=== PATIENT | female | born 1940 | race Caucasian/White ===

== ENCOUNTER → 2016-10-16 | Outpatient (CLI) | payer OTHER ==
[~2016-10-16] MED LIST: AMLO10CA PO; GLC/500 PO; HYDR25TA5 PO; MULTTAB58 PO; ONDA4TAB10 SL; ONDA4TAB7 SL; POTA10CA28 PO
--- NOTE | 2016-10-16 16:02 | MAMMOGRAPHY REPORT ---
BILATERAL DIGITAL SCREENING MAMMOGRAM WITH CAD: 10/16/2016 CLINICAL HISTORY: Routine screening. Patient has no complaints. TECHNIQUE: Current study was also evaluated with a Computer Aided Detection (CAD) system. Bilatera l CC and MLO views were obtained. COMPARISON: Comparison is made to exams dated: 10/14/2015 mammogram, 10/09/2013 mammogram, 10/10/2014 aracely mogram, 10/06/2012 mammogram, 10/01/2011 mammogram, and 10/09/2010 mammogram - [facility]. BREAST COMPOSITION: The tissue of both breasts is almost entirely fatty. FINDINGS: No suspicious masses, calcifications, or areas of architectural distortion are noted in e ither breast. There has been no significant interval change compared to prior exams. Small mass in the left superior posterior breast on the MLO view is stable compared to the MLO view from the 2010 exam and is consistent with a benign lymph node. IMPRESSION: ACR BI-RADS CATEGORY 2: BENIGN There is no mammographic evidence of malignancy. A 1 year screening mammogram is recommended. The p atient will receive written notification of the results. Approximately 10% of breast cancers are not detected with mammography. A negative mammographic repor t should not delay biopsy if a clinically suggestive mass is present. Jossy Escobar M.D. ah/:10/16/2016 14:40:38 Manager Documentation: Cinthia SUTTON(Arnie)(M), [facility] letter sent: Normal 1/2 BI-RADS Code: ACR BI-RADS Category 2: Benign
== END | disposition home or self-care (01) ==
LOC: C.MAMM 08:45
PROVIDERS: ATTEND Family Medicine
DX: Z12.31 Encounter for screening mammogram for malignant neoplasm of breast (principal)

== ENCOUNTER 2017-07-02 09:50 | Emergency (ER) | payer OTHER ==
[~2017-07-02] VITALS: Ht 168.9 cm; Wt 80.6 kg
[~2017-07-02 09:50] MED LIST changes: -ONDA4TAB10 SL; -POTA10CA28 PO
[2017-07-02 09:53] VITALS: TEMP 36.4; Ht 168.9 cm; Wt 80.6 kg
[2017-07-02] MEDS ORDERED: IBUPROFEN 200 MG TAB PO STA (11:17)
[2017-07-02] MEDS ORDERED: OXYCODONE/ACETAMINOPHEN 5-325 TAB PO STA (11:17)
[2017-07-02] MEDS ORDERED: LOTE1GEL OP (12:13)
[2017-07-02] MEDS ORDERED: MTRCR45 TOP (12:13)
[2017-07-02] MEDS ORDERED: LIFI5DRO OPB (12:13)
[2017-07-02] MEDS ORDERED: PRLSR20 PO (12:13)
[2017-07-02] MEDS ORDERED: FISH1CAP3 PO (12:13)
[2017-07-02] MEDS ORDERED: PROB1TAB16 PO (12:13)
[2017-07-02] MEDS ORDERED: CALC600T9 PO (12:13)
--- NOTE | 2017-07-02 12:15 | DIAGNOSTIC IMAGING REPORT ---
L-SPINE MIN 4 VIEWS ROUTINE HISTORY: Pain mid to low back pain ? compression fx COMPARISON: 03/16/2015 FINDINGS: Mild lumbar scoliosis. Progressive degenerative disc change L2-L3 and to lesser extent L3-L4. Slight wedge deformity superior endplate T12. This is not present on the prior study although has some radiographic features indicate a nonacute or indeterminate age. Minimal grade 1 anterolisthesis L4 on L5 on a degenerative basis moderate degenerative disc change throughout IMPRESSION: 1. Slight wedge deformity superior endplate T12 of uncertain age although not present on a prior study of 2014. 2. Degenerative changes of the lumbar spine moderately progressive from the prior study. 3. Scoliosis. The above report was generated using voice recognition software. It may contain grammatical, syntax or spelling errors. Electronically signed by: Billy Ambriz M.D. 07/02/2017 12:14 PM Dictated Date/Time: 07/02/2017 12:12 PM
--- NOTE | 2017-07-02 12:17 | DIAGNOSTIC IMAGING REPORT ---
THORACIC SPINE 3 VIEWS ROUTINE HISTORY: Pain mid to low back pain ? compression fx COMPARISON: 03/16/2015 FINDINGS: Slight wedge deformity T12 of uncertain age although not present on the prior study. Somewhat progressive degenerative disc change throughout the entire thoracic region. No additional compression deformity. Moderate reactive osteophytic changes throughout. Slight thoracic scoliosis. No subluxation. IMPRESSION: 1. Slight compression deformity superior endplate T12 of uncertain age although not present on a study 2014. 2. Degenerative change throughout the remainder the thoracic region. The above report was generated using voice recognition software. It may contain grammatical, syntax or spelling errors. Electronically signed by: Billy Ambriz M.D. 07/02/2017 12:16 PM Dictated Date/Time: 07/02/2017 12:14 PM
--- NOTE | 2017-07-02 12:19 | EMERGENCY ROOM VISIT NOTE ---
History First contact with patient: 11:04 Chief Complaint: BACK PAIN Stated Complaint: LOWER BACK PAIN History of Present Illness The patient is a 76 year old female who presents to the Emergency Room with complaints of mid to lower back pain that has gotten progressively worse over the last 3 weeks. The patient reports having a history of chronic back pain. She was lifting to heavy flower pots 3 weeks ago, which she thinks aggravated her pain. She saw her primary care physician. He prescribed naproxen and muscle relaxants. The naproxen did not help. She reports that the muscle relaxants gave her urinary incontinence. This resolved when she stopped these medications. She denies any numbness, tingling or weakness into her lower extremities. No saddle paresthesias. She has been taking ibuprofen at home with minimal relief. She denies any falls. Review of Systems 6 system review negative. Please see pertinent positives in the history of present illness section. Past Medical/Surgical History Medical Problems: (1) Diabetes (2) HTN (hypertension) (3) Migraines Family History Diabetes mellitus Hypertension Social History Smoking Status: Never Smoker Drug Use: none Marital Status: Housing Status: lives with significant other Occupation Status: retired Current/Historical Medications Scheduled Amlodipine/Benazepril (Lotrel 10MG/20MG), 1 CAP PO QAM Calcium Carbonate-Vitamin D (Calcium + D), 1 TAB PO DAILY Fish Oil-Cholecalciferol (Fish Oil + D3), 2 CAP PO BID Hydrochlorothiazide (Hydrochlorothiazide), 25 MG PO QAM Lifitegrast (Xiidra), 2 DROPS OPB DAILY Metformin Hcl (Glucophage), 500 MG PO BID Metronidazole Hcl (Metronidazole), 1 APPLN TOP BID Multiple Vitamin (Multivitamin), 1 TAB PO DAILY Probiotic Product (Probiotic), 1 TAB PO DAILY Scheduled PRN Loteprednol Etabonate (Lotemax), 1 APPLN OP DAILY PRN for . Omeprazole (Prilosec), 20 MG PO DAILY PRN for HEARTBURN Oxycodone/Acetaminophen 5MG/325MG (Percocet 5MG/325MG), 1 TAB PO Q4H PRN for Pain Physical Exam Vital Signs Date Time Temp Pulse Resp B/P (MAP) Pulse Ox O2 Delivery O2 Flow Rate FiO2 07/02/17 14:04 88 16 134/76 98 07/02/17 12:42 70 22 134/72 96 Room Air 07/02/17 11:07 77 22 141/75 96 Room Air 07/02/17 09:53 36.4 82 16 151/75 96 Room Air Physical Exam VITALS: Vitals are noted on the nurse's note and reviewed by myself. Vital signs stable. GENERAL: 76-year-old female, in no acute distress, nondiaphoretic, SKIN: The skin was without rashes, erythema, edema, or bruising. HEAD: Normocephalic atraumatic. NECK:Cervical spine is nontender. No JVD. HEART: Regular rate and rhythm without murmurs gallops or rubs. LUNGS: Clear to auscultation bilaterally without wheezes, rales or rhonchi. No accessory muscle use. MUSCULOSKELETAL: Tenderness to palpation over the lower thoracic lumbar spinous processes and upper lumbar spinous processes. Muscle spasm noted in the right paraspinous muscle in this area. No tenderness over the SI joints bilaterally. Negative straight leg test bilaterally. Distal pulses +2 bilaterally. Sensation in the lower extremities is intact bilaterally. Strength 5/5 throughout. NEURO: Patient was alert and oriented to person place and time. Normal sensation to touch. No focal neurological deficits. Medical Decision & Procedures ER Provider Diagnostic Interpretation: thoracic/lumbar xrays Patient Name: FABIENNE DELGADO Unit Number: [id number] Dictated: 07/02/171211 Transcribed: 07/02/171211 MS Printed Date/Time: [~ rep prt dt]/[~ rep prt tm] [~ rep ct labl] - [~ rep ct ivnm] [facility] [place] [address] Dictated: 07/02/171211 Transcribed: 07/02/171211 MS Printed Date/Time: [~ rep prt dt]/[~ rep prt tm] [~ rep ct labl] - [~ rep ct ivnm] IMPRESSION: 1. Slight wedge deformity superior endplate T12 of uncertain age although not present on a prior study of 2014. 2. Degenerative changes of the lumbar spine moderately progressive from the prior study. 3. Scoliosis. The above report was generated using voice recognition software. It may contain grammatical, syntax or spelling errors. Electronically signed by: Billy Ambriz M.D. 07/02/2017 12:14 PM Dictated Date/Time: 07/02/2017 12:12 PM The status of this report is Signed. Draft = Not yet reviewed or approved by Radiologist. Signed = Reviewed and approved by Radiologist. <AttendingPhy></AttendingPhy> <FamilyPhy>Trav Meraz M.D.</FamilyPhy> < PrimaryPhy>Trav Meraz M.D.</PrimaryPhy> <UnitNumber>[id number]</ UnitNumber> <VisitNumber>[id number]</VisitNumber> <PatientName>FABIENNE DELGADO</ PatientName> <DateOfBirth>1940</DateOfBirth> <Location>C.EDB</Location> < ServiceDate>07/02/17</ServiceDate> <MNE>ESINDI</MNE> <OrderingPhy>Fauzia Zapien PA-C</OrderingPhy> <OrderingPhyMNE>f rep ord dr dash</OrderingPhyMNE> < DictatingPhyMNE>f rep dict dr dash</DictatingPhyMNE> <CCListMNE>f rep ct mne</ CCListMNE> <AdmittingPhyMNE>f pt admit dr dash</AdmittingPhyMNE> <AttendingPhyMNE >f pt attend dr dash</AttendingPhyMNE> <ConsultingPhyMNE>f pt consult dr dash</ConsultingPhyMNE> <FamilyPhyMNE>f pt fam dr dash</FamilyPhyMNE> <OtherPhyMNE>f pt other dr dash</OtherPhyMNE> < PrimaryPhyMNE>f pt prim care dr dash</PrimaryPhyMNE> <ReferringPhyMNE>f pt referring dr dash</ReferringPhyMNE> IMPRESSION: 1. Slight wedge deformity superior endplate T12 of uncertain age although not present on a prior study of 2014. 2. Degenerative changes of the lumbar spine moderately progressive from the prior study. 3. Scoliosis. The above report was generated using voice recognition software. It may contain grammatical, syntax or spelling errors. Electronically signed by: Billy Ambriz M.D. 07/02/2017 12:14 PM Dictated Date/Time: 07/02/2017 12:12 PM The status of this report is Signed. Draft = Not yet reviewed or approved by Radiologist. Signed = Reviewed and approved by Radiologist. <AttendingPhy></AttendingPhy> <FamilyPhy>Trav Meraz M.D.</FamilyPhy> < PrimaryPhy>Trav Meraz M.D.</PrimaryPhy> <UnitNumber>[id number]</ UnitNumber> <VisitNumber>[id number]</VisitNumber> <PatientName>FABIENNE DELGADO Medications Administered Medications (Trade) Dose Ordered Sig/Mikayla Route Start Time Stop Time Status Last Admin Dose Admin Oxycodone/ Acetaminophen (Percocet 5-325mg Tab) 1 tab NOW STAT PO 07/02/17 11:17 07/02/17 11:19 DC 07/02/17 11:24 1 TAB Ibuprofen (Advil Tab) 400 mg NOW STAT PO 07/02/17 11:17 07/02/17 11:19 DC 07/02/17 11:24 400 MG ED Course The patient was seen and examined She was medicated with Percocet and ibuprofen Imaging was performed and reviewed Case was also discussed with my supervising physician, who is in agreement with my plan Upon reevaluation, the patient was resting comfortably. The medications have helped with her pain. We discussed the results of her imaging. She voiced understanding. Discharge instructions were reviewed, and she was discharged in good condition Medical Decision Differential diagnosis: Spine fracture, ligamentous injury, subluxation, spondylolisthesis, spondylosis, herniated disc, contusion, muscle spasm This patient is a 76-year-old female presents emergency department with mid back pain over the last few weeks. She denies any trauma. She did however lift some very heavy flowerpots. On exam, she was tender in the lower thoracic spine. Imaging was performed. There appears to be a new compression fracture at T12, which correlates with her pain. This is new when compared to prior studies from 2015. The patient does not have any neurologic deficits. She had very good pain relief in the emergency department. I believe she is stable to be discharged home with close follow-up from an orthopedic doctor. She is comfortable with this plan. The patient was given a copy of her films on a CD, and she was advised against any chiropractic manipulation. She will not do any strenuous activity until she is followed up with orthopedics. She was instructed to continue ibuprofen for pain. She was also given a short course of Percocet for severe pain. The patient agrees to return to the emergency department with any new, worsening or concerning symptoms. This chart was completed in part utilizing [employer] Speech Voice Recognition software. Attempts were made to minimize the grammatical errors, random word insertions, pronoun errors and incomplete sentences. Any formal questions or concerns about the content, text or information contained within the body of this dictation should be directly addressed to the provider for clarification. Blood Pressure Screening Patient's blood pressure: Elevated blood pressure Blood pressure disposition: Elevated BP felt to be situational Impression Primary Impression: Compression fracture Departure Information Dispostion Home / Self-Care Condition GOOD Prescriptions Oxycodone/Acetaminophen 5MG/325MG (PERCOCET 5MG/325MG) Tab 1 TAB PO Q4H Y for Pain, #20 TAB For Initial Treatment Prov: Fauzia Zapien PA-C 07/02/17 Referrals Trav Meraz M.D. (PCP) Patient Instructions My [facility] Additional Instructions Please rest. No strenuous activity. Please try not to lift over 5 pounds until seen by orthopedics. Please call either today or Wednesday morning for a follow-up appointment with Dr. Hanson. A number has been provided. Ibuprofen 400 mg every 8 hours Percocet 1-2 tabs every 4 hours for severe pain. Do not drink alcohol or drive while taking this medication. This may be taken with ibuprofen, but avoid Tylenol. Please also take a stool softener on taking this medication as it will cause constipation. Colace can be found [id number] and taken twice daily. Please also follow up with your primary care physician I would recommend against any manipulation with a chiropractor until seen by orthopedics. Please return to the emergency department with any new, concerning or worsening symptoms
--- NOTE | 2017-07-02 13:21 | EMERGENCY ROOM VISIT NOTE ---
ED Visit Note First contact with patient: 11:04 The patient was seen and examined with Fauzia Zapien PA-C. I agree with the history, physical and findings. Please see the note for disposition and details.
[2017-07-02] MEDS ORDERED: OXYC-57 PO (13:27)
[2017-07-02 14:04] VITALS: BP 134/76; PULSE 88; O2SAT 98
== END 2017-07-02 14:05 | disposition home or self-care (01) ==
LOC: C.EDB 09:51
DX: M48.54XA Collapsed vertebra, not elsewhere classified, thoracic region, initial encounter for fracture (principal); E11.9 Type 2 diabetes mellitus without complications; I10 Essential (primary) hypertension; G43.909 Migraine, unspecified, not intractable, without status migrainosus; Z83.3 Family history of diabetes mellitus; Z82.49 Family history of ischemic heart disease and other diseases of the circulatory system; Z79.899 Other long term (current) drug therapy

== ENCOUNTER → 2017-10-20 | Outpatient (CLI) | payer OTHER ==
[~2017-10-20] MED LIST changes: +CALC600T9 PO; +FISH1CAP3 PO; +LIFI5DRO OPB; +LOTE1GEL OP; +MTRCR45 TOP; -ONDA4TAB7 SL; +OXYC-57 PO; +PRLSR20 PO; +PROB1TAB16 PO
--- NOTE | 2017-10-20 15:37 | MAMMOGRAPHY REPORT ---
BILATERAL DIGITAL SCREENING MAMMOGRAM TOMOSYNTHESIS WITH CAD: 10/20/2017 CLINICAL HISTORY: Routine screening. TECHNIQUE: Breast tomosynthesis in addition to standard 2D mammography was performed. Current study was also evaluated with a Computer Aided Detection (CAD) system. COMPARISON: Comparison is made to exams dated: 10/16/2016 mammogram, 10/14/2015 mammogram, 10/10/2014 aracely mogram, 10/09/2013 mammogram, 10/06/2012 mammogram, and 10/01/2011 mammogram - [facility] er. BREAST COMPOSITION: There are scattered areas of fibroglandular density in both breasts. FINDINGS: The parenchymal pattern is unchanged. No developing mass, architectural distortion or clus ter of suspicious microcalcifications is seen in either breast. IMPRESSION: ACR BI-RADS CATEGORY 2: BENIGN There is no mammographic evidence of malignancy. A 1 year screening mammogram is recommended. The pa tient will receive written notification of the results. Approximately 10% of breast cancers are not detected with mammography. A negative mammographic report should not delay biopsy if a clinically suggestive mass is present. Jocelin Rodriguez M.D. ay/:10/20/2017 10:13:26 Certified Emergency Vehicle Technician: Tomasz SUTTON(Arnie)(Konrad), [facility] letter sent: Normal 1/2 BI-RADS Code: ACR BI-RADS Category 2: Benign
== END | disposition home or self-care (01) ==
LOC: C.MAMM 09:06
PROVIDERS: ATTEND Family Medicine
DX: Z12.31 Encounter for screening mammogram for malignant neoplasm of breast (principal)

== ENCOUNTER 2019-08-23 12:38 | Observation (INO) ==
[2019-08-23 13:20] LABS: Basophils # (auto) 0.02 K/uL (0-0.2); Basophils % (auto) 0.3 %; Eosinophils # (auto) 0.14 K/uL (0-0.5); Eosinophils % (auto) 1.8 %; Hematocrit (blood only) 36.7 % (37-47); Hemoglobin 13.1 g/dL (12.0-16.0); Immature Granulocytes # (auto) 0.02 K/uL (0.00-0.02); Immature Granulocytes % (auto) 0.3 %; Lymphocytes # (auto) 1.94 K/uL (1.2-3.4); Lymphocytes % (auto) 24.9 %; Mean Corpuscular Hgb Conc 35.7 g/dL (32-36); Mean Corpuscular Volume 84.2 fL (80-100); Monocytes # (auto) 0.45 K/uL (0.11-0.59); Monocytes % (auto) 5.8 %; Neutrophils # (auto) 5.23 K/uL (1.4-6.5); Neutrophils % (auto) 66.9 %; Platelet Count 264 K/uL (130-400); RDW Coefficient of Variation 12.4 % (11.5-14.5); RDW Standard Deviation 38.1 fL (36.4-46.3); Red Blood Count 4.36 M/uL (4.2-5.4)
[2019-08-23] MEDS ORDERED: SODIUM CHLORIDE 0.9% 500 ML IV ONE (13:22)
[2019-08-23 13:46] LABS: BUN Creatinine Ratio 20.8 (10-20); Bilirubin,Total 0.8 mg/dl (0.2-1); Calcium 9.9 mg/dl (8.5-10.1); Creatinine Clr Calc Pharmacy 54.3 ml/min; Est GFR (African American) 75.5; Est GFR (Non-African American) 65.2; Globulin 4.2 gm/dl (2.5-4.0); Total Protein 8.2 gm/dl (6.4-8.2)
[2019-08-23 14:05] LABS: Appearance Urine Clear (Clear); Bilirubin Urine Negative (Negative); Blood Urine Trace (Negative); Color Urine Yellow; Glucose Urine UA Negative (Negative); Ketones Urine Negative (Negative); Leukocyte Esterase Urine Negative (Negative); Nitrite Urine Negative (Negative); Protein Urine Negative (Negative); Urobilinogen Urine Negative (Negative); pH Urine 7.5 (4.5-7.5)
[2019-08-23 14:06] LABS: Lipase 134 U/L (73-393); Phosphorus 3.3 mg/dl (2.5-4.9); Troponin I < 0.015 ng/ml (0-0.045)
[2019-08-23 14:19] LABS: RBC Urine 0-4 /hpf (0-4)
[2019-08-23 14:20] LABS: Bacteria Urine 1+ (Negative); Epithelial Cell Urine 0-5 /lpf (0-5); WBC Urine 0-5 /hpf (0-5)
[2019-08-23 14:32] LABS: Potassium 3.6 mmol/L (3.5-5.1)
[2019-08-23] MEDS ORDERED: FAMOTIDINE 20MG IV PUSH 20 MG/5 ML SYR IV STA (14:34)
[2019-08-23 14:36] LABS: Magnesium 1.3 mg/dl (1.8-2.4)
--- NOTE | 2019-08-23 14:39 | XRay Report ---
XR chest 1V portable HISTORY: 79 years-old Female nausea acute nausea COMPARISON: Chest radiograph 08/02/2019 TECHNIQUE: Portable AP view of the chest FINDINGS: Cardiomediastinal and hilar silhouettes are within normal limits. There is no pneumothorax, pleural e ffusion, focal airspace consolidation or overt pulmonary edema. Degenerative changes of the shoulders and spine. IMPRESSION: No acute process. ACT 112: Negative or not required by law. The above report was generated using voice recognition software. It may contain grammatical, syntax o r spelling errors. Electronically signed by: Jeff Bean M.D. 08/23/2019 2:38 PM
[2019-08-23] MEDS: MAGNESIUM SULFATE / D5W 1 GM/100 ML BAG IV SCH ×2 (15:08→16:09)
--- NOTE | 2019-08-23 16:35 | History & Physical Report ---
Date of Service August 23, 2019 Assessment & Plan (1) Hyponatremia: obtain urine osmolality serum osmolality and serum sodium. will recheck sodium this evening. Patient denies taking any diuretic since her last discharge. Unsure as the particular cause of the hyponatremia. will monitor (2) Hypomagnesemia: replaced in ED. Will monitor. (3) Weakness: Likely secondary to elctrolyte abnormality. (4) HTN (hypertension): will restart in AM. (5) Diabetes: will check a1c, check BSG in AM. Full code History of Present Illness Chief Complaint: Dizziness. Primary Care Provider: Trav Meraz MD 79-year-old female with past medical history of hypertension, diabetes complains today of diarrhea near syncope. Patient reports she was her usual state of health up until this morning. She felt rundown and began beging dizzy. She says she was unable to ambulate to get up from the kitchen table. She informed her and was brought to the ER. She was found to have hyponatremia and hypomagesmia At this time, she tells me she is feeling better. She has not had another bowel movement. She denies any further abdominal pain as well as fever. She does not feel her appetite is recovered. Of note, she denies any nausea or vomiting, chest pain, shortness of breath, or fever or chills. She did note that she was taking ibuprofen previously for some back pain. She denies any unusual foods, or antibiotic use. Allergies Allergy/AdvReac Type Severity Reaction Status Date / Time pollen extracts Allergy Unknown "SPRING Verified 08/23/19 13:54 ALLERGIES" Home Medications Home Medications Medication Instructions Recorded Confirmed Type Prilosec OTC 20 mg PO DAILY 08/02/19 08/23/19 History Probiotic 3,000 mmu cells PO DAILY 08/02/19 08/23/19 History Xiidra 1 drp OPHTHALMIC (EYE) BID 08/02/19 08/23/19 History amlodipine-benazepril 1 cap PO DAILY 08/02/19 08/23/19 History multivitamin 1 tab PO DAILY 08/02/19 08/23/19 History omega 1-yem-drn-fish oil [Fish Oil] 1 cap PO BID 08/02/19 08/23/19 History metformin 500 mg PO DAILY #0 tab 08/03/19 08/23/19 Rx atorvastatin 10 mg PO DAILY 08/23/19 08/23/19 History cyanocobalamin (vitamin B-12) 0 mcg PO DAILY 08/23/19 08/23/19 History [Vitamin B-12] magnesium 0 mg PO DAILY 08/23/19 08/23/19 History Past Med/Surg History Medical History Dehydration (Inactive) Diabetes (Chronic) HTN (hypertension) (Chronic) Migraines (Inactive) Nausea (Inactive) Vomiting (Inactive) Surgical History No pertinent past surgical history Family History Other No pertinent family history Social History Preferred Language: Greek Communication Ability: Effective Job Analyst Required: No Beliefs That Will Affect Care: None Current Living Situation: Spouse Feels Safe at Home: Yes Smoking Status: Never smoker Hx Alcohol Use: Yes Hx Substance Use: No Review of Systems Constitutional: + weight loss (10 pounds in past month, she states it is per diet); no sweats and no malaise Eyes: no diplopia Ear, Nose, Mouth, Throat: no ear trauma and no hyperacusis Respiratory: no change in sputum Cardiovascular: no chest pain with activity and no dyspnea at rest Gastrointestinal: no bloating Genitourinary: no urinary frequency Musculoskeletal: no radicular pain Integumentary: no rash Neurologic: no falls Psychiatric: no hopelessness Endocrine: no polydipsia Physical Exam Constitutional: well developed and well nourished; no acute distress Eyes: PERRL, conjunctivae normal, anicteric sclerae ENMT: external ear and nose normal, oropharynx normal Neck: trachea midline, no thyromegaly Respiratory: normal respiratory effort, lungs clear to auscultation Cardiovascular: RRR, no murmur, no edema Gastrointestinal (Abdomen): normal bowel sounds, soft, nontender, no hepatosplenomegaly Musculoskeletal: no cyanosis or clubbing, extremities motor strength 5/5 Skin: no rashes, warm and dry Neurologic: CN's II-XI intact bilaterally Psychiatric: A+Ox3, euthymic affect Results & Data Vital Signs (Past 12 Hours) Vital Signs Temp Pulse Pulse Resp BP BP Pulse Ox 08/23/19 13:43 77 16 131/75 97 08/23/19 12:40 37.0 C 79 21 186/103 H 97 PG Care Time/CCT Total # of Minutes Spent Total Time Spent with Patient: Total time spent is greater than 50% in coordination of care (as documented) at patient's floor/unit and/or counseling patient:
--- NOTE | 2019-08-23 17:13 | Emergency Department Note ---
Entered by Angela Mattson acting as a scribe for Loco Lobato MD History of Present Illness General Chief complaint: Nausea Time Seen by Provider: 08/23/19 13:19 Source: patient History of Present Illness Onset (ago): hour(s) 5 Location: head (weak) Pain Consistency: + other (sudden) Quality: + other (weak) Relieved By: not by medication (Ibuprofen) Associated symptoms: + loss of appetite, + nausea/vomiting (Positive nausea. Negative vomiting. ), + weakness and + other (Positive dizziness. Negative abnormal urinary symptoms. ); no chest pain and no shortness of breath Treatments prior to arrival: other (Ibuprofen) The patient is a 79 year old female presenting to the Emergency Department complaining of sudden weakness starting 5 hours ago. The patient reports that after eating breakfast she suddenly because weak and felt dizzy. She states that after experiencing these symptoms she then became nauseous. She explains that she isnt currently nauseous. She notes that she hasnt had much of an appetite lately and struggled to eat some of her breakfast. She adds that she took her blood pressure MANAGER CLIENT which was initially low but after she became dizzy she took it again and saw that her blood pressure was then high. The patient reports that her normal Ibuprofen dosage for her sciatica was just increased but that taking this Ibuprofen hasnt helped her new symptoms. She denies vomiting, shortness of breath, chest pain and abnormal urinary symptoms. Home Medications Home Medications Medication Instructions Recorded Confirmed Type Prilosec OTC 20 mg PO DAILY 08/02/19 08/23/19 History Probiotic 3,000 mmu cells PO DAILY 08/02/19 08/23/19 History Xiidra 1 drp OPHTHALMIC (EYE) BID 08/02/19 08/23/19 History amlodipine-benazepril 1 cap PO DAILY 08/02/19 08/23/19 History multivitamin 1 tab PO DAILY 08/02/19 08/23/19 History omega 8-gfb-xvx-fish oil [Fish Oil] 1 cap PO BID 08/02/19 08/23/19 History metformin 500 mg PO DAILY #0 tab 08/03/19 08/23/19 Rx atorvastatin 10 mg PO DAILY 08/23/19 08/23/19 History cyanocobalamin (vitamin B-12) 0 mcg PO DAILY 08/23/19 08/23/19 History [Vitamin B-12] magnesium 0 mg PO DAILY 08/23/19 08/23/19 History Allergies Allergy/AdvReac Type Severity Reaction Status Date / Time pollen extracts Allergy Unknown "SPRING Verified 08/23/19 13:54 ALLERGIES" Past Med/Surg History Medical History Dehydration (Inactive) Diabetes (Chronic) HTN (hypertension) (Chronic) Migraines (Inactive) Nausea (Inactive) Vomiting (Inactive) Surgical History No pertinent past surgical history Family History Other No pertinent family history Social History Preferred Language: German Communication Ability: Effective Popcorn Candy Maker Required: No Beliefs That Will Affect Care: None Current Living Situation: Spouse Feels Safe at Home: Yes Smoking Status: Never smoker Hx Alcohol Use: Yes Hx Substance Use: No Review of Systems See HPI for pertinent positives & negatives. and A total of 10 systems reviewed and were otherwise negative Physical Exam Vital Signs Vital Signs - 24 hr 08/23/19 12:40 08/23/19 13:43 08/23/19 16:00 Temperature 37.0 C Temperature Source Oral Pulse Rate 79 Pulse Rate [Apical] 77 82 Respiratory Rate 21 16 18 Respiratory Effort / Characteristics Non-Labored Spontaneous Respiratory Depth Normal Respiratory Pattern Regular Blood Pressure 186/103 H Blood Pressure [Left Arm] 131/75 131/75 Blood Pressure Mean 130 Blood Pressure Mean [Left Arm] 93 93 Pulse Oximetry 97 97 97 Oxygen Delivery Method Room Air Room Air Room Air Sepsis Recent Fever Within 48 Hours No Sepsis New/Unexplained Change in Mental Status No Sepsis Action Taken by Nursing No Action Required GENERAL: Patient is fatigued appearing. Awake, alert, in no distress HENT: Normocephalic, atraumatic. Oropharynx with dry mucous membranes and otherwise unremarkable. EYES: Normal conjunctiva. Sclera non-icteric. EOMI. No nystamgus. PEARRL. NECK: Supple. No nuchal rigidity. FROM. No JVD. RESPIRATORY: CTAB. CARDIAC: Regular rate, normal rhythm. Extremities warm and well perfused. Pulses equal. ABDOMEN: Soft, non-distended. No tenderness to palpation. No rebound or guardi ng. No masses. RECTAL: Deferred. MUSCULOSKELETAL: Chest examination reveals no tenderness. The back is symmetrical on inspection without obvious abnormality. There is no CVA tenderness to palpation. No joint edema. LOWER EXTREMITIES: Calves are equal size bilaterally and non-tender. No edema. No discoloration. NEURO: Normal sensorium. No sensory or motor deficits noted. Normal cerebellar function including finger to nose, alternating palms and heal to [place]. 5/5 strength. SILT x 4 extremities. SKIN: No rash or jaundice noted. Course Course 1330: The patient was evaluated in room C12B, and a complete history and phys ical examination were performed. 1455: I reevaluated the patient at this time. 1530: I discussed the patient's case with Dr. Hyatt - [facility] [place] hospitalist. He will evaluate the patient for further management. Administered Medications Lactated Ringer's (Lr) 1,000 mls @ 150 mls/hr IV .[id number] KARYN Stop: 09/22/19 22:44 Last Admin: 08/23/19 22:51 Dose: 150 mls/hr Documented by: [id number] Discontinued Medications Sodium Chloride (Nss) 500 mls @ 999 mls/hr IV .Q31M ONE Stop: 08/23/19 13:52 Last Infusion: 08/23/19 14:10 Dose: 0 mls/hr Documented by: [id number] Admin: 08/23/19 13:43 Dose: 999 mls/hr Documented by: [id number] Famotidine (Pepcid 20mg Iv Push) 20 mg in 5 mls @ 2.5 mls/min IV NOW STA Stop: 08/23/19 14:35 Last Admin: 08/23/19 14:55 Dose: 2.5 mls/min Documented by: [id number] Magnesium Sulfate/Dextrose (Magnesium Sulfate / D5w) 1 gm in 100 mls @ 100 mls/hr IV Q1H KARYN Stop: 08/23/19 16:44 Last Infusion: 08/23/19 16:10 Dose: 0 mls/hr Documented by: [id number] Admin: 08/23/19 16:09 Dose: 100 mls/hr Documented by: [id number] Infusion: 08/23/19 16:08 Dose: 100 mls/hr Documented by: [id number] Admin: 08/23/19 15:08 Dose: 100 mls/hr Documented by: [id number] Medical Decision Making Differential Diagnosis Differential Diagnosis includes but is not limited to dehydration, stroke, anemia, hypoglycemia, hyponatremia, hypernatremia, urinary tract infection, pneumonia, bronchitis, sepsis, gastroenteritis, additional abdominal pathology, metabolic abnormalities and infections. Medical Records Attestation: I reviewed the patient's medical records. Home Medications Current Medication List: was personally reviewed by me Laboratory Data Attestation: I reviewed the patient's lab results. Result diagrams: 08/23/19 12:46 08/23/19 21:25 Lab Results 08/23/19 08/23/19 08/23/19 Range/Units 12:46 12:46 12:46 WBC 7.80 (4.8-10.8) K/uL RBC 4.36 (4.2-5.4) M/uL Hgb 13.1 (12.0-16.0) g/dL Hct 36.7 L (37-47) % MCV 84.2 (80-100) fL MCH 30.0 (25-34) pg MCHC 35.7 (32-36) g/dL RDW Std Deviation 38.1 (36.4-46.3) fL RDW Coeff of Niru 12.4 (11.5-14.5) % Plt Count 264 (130-400) K/uL MPV 9.0 (7.4-10.4) fL Immature Gran % (Auto) 0.3 % Neut % (Auto) 66.9 % Lymph % (Auto) 24.9 % [place] % (Auto) 5.8 % Eos % (Auto) 1.8 % Baso % (Auto) 0.3 % Immature Gran # (Auto) 0.02 (0.00-0.02) K/uL Neut # (Auto) 5.23 (1.4-6.5) K/uL Lymph # (Auto) 1.94 (1.2-3.4) K/uL [place] # (Auto) 0.45 (0.11-0.59) K/uL Eos # (Auto) 0.14 (0-0.5) K/uL Baso # (Auto) 0.02 (0-0.2) K/uL Sodium 128 L (136-145) mmol/L Potassium (3.5-5.1) mmol/L Chloride 92 L (98-107) mmol/L Carbon Dioxide 28 (21-32) mmol/L Anion Gap 8.0 (3-11) BUN 18 (7-18) mg/dl Creatinine 0.86 (0.6-1.2) mg/dl Est Cr Clr Drug Dosing 54.3 ml/min Est GFR ( Amer) 75.5 Est GFR (Non-Af Amer) 65.2 BUN/Creatinine Ratio 20.8 H (10-20) Glucose 120 H (70-99) mg/dl Osmolality (280-300) mOsm/kg Calcium 9.9 (8.5-10.1) mg/dl Phosphorus (2.5-4.9) mg/dl Magnesium (1.8-2.4) mg/dl Total Bilirubin 0.8 (0.2-1) mg/dl AST (15-37) U/L ALT 27 (12-78) U/L Alkaline Phosphatase 63 (45-117) U/L Troponin I (0-0.045) ng/ml Total Protein 8.2 (6.4-8.2) gm/dl Albumin 4.0 (3.4-5.0) gm/dl Globulin 4.2 H (2.5-4.0) gm/dl Albumin/Globulin Ratio 1.0 (0.9-2) Lipase (73-393) U/L Urine Color Yellow Urine Appearance Clear (Clear) Urine pH 7.5 (4.5-7.5) Ur Specific [place] 1.010 (1.000-1.030) Urine Protein Negative (Negative) Urine Glucose (UA) Negative (Negative) Urine Ketones Negative (Negative) Urine Blood Trace H (Negative) Urine Nitrite Negative (Negative) Urine Bilirubin Negative (Negative) Urine Urobilinogen Negative (Negative) Ur Leukocyte Esterase Negative (Negative) Urine RBC 0-4 (0-4) /hpf Urine WBC 0-5 (0-5) /hpf Ur Epithelial Cells 0-5 (0-5) /lpf Urine Crystals Talc (None Prsent) Urine Bacteria 1+ H (Negative) 08/23/19 08/23/19 08/23/19 Range/Units 12:46 14:06 16:01 WBC (4.8-10.8) K/uL RBC (4.2-5.4) M/uL Hgb (12.0-16.0) g/dL Hct (37-47) % MCV (80-100) fL MCH (25-34) pg MCHC (32-36) g/dL RDW Std Deviation (36.4-46.3) fL RDW Coeff of Niru (11.5-14.5) % Plt Count (130-400) K/uL MPV (7.4-10.4) fL Immature Gran % (Auto) % Neut % (Auto) % Lymph % (Auto) % [place] % (Auto) % Eos % (Auto) % Baso % (Auto) % Immature Gran # (Auto) (0.00-0.02) K/uL Neut # (Auto) (1.4-6.5) K/uL Lymph # (Auto) (1.2-3.4) K/uL [place] # (Auto) (0.11-0.59) K/uL Eos # (Auto) (0-0.5) K/uL Baso # (Auto) (0-0.2) K/uL Sodium (136-145) mmol/L Potassium 3.6 (3.5-5.1) mmol/L Chloride (98-107) mmol/L Carbon Dioxide (21-32) mmol/L Anion Gap (3-11) BUN (7-18) mg/dl Creatinine (0.6-1.2) mg/dl Est Cr Clr Drug Dosing ml/min Est GFR ( Amer) Est GFR (Non-Af Amer) BUN/Creatinine Ratio (10-20) Glucose (70-99) mg/dl Osmolality 275 L (280-300) mOsm/kg Calcium (8.5-10.1) mg/dl Phosphorus 3.3 (2.5-4.9) mg/dl Magnesium 1.3 L (1.8-2.4) mg/dl Total Bilirubin (0.2-1) mg/dl AST 18 (15-37) U/L ALT (12-78) U/L Alkaline Phosphatase (45-117) U/L Troponin I < 0.015 (0-0.045) ng/ml Total Protein (6.4-8.2) gm/dl Albumin (3.4-5.0) gm/dl Globulin (2.5-4.0) gm/dl Albumin/Globulin Ratio (0.9-2) Lipase 134 (73-393) U/L Urine Color Urine Appearance (Clear) Urine pH (4.5-7.5) Ur Specific [place] (1.000-1.030) Urine Protein (Negative) Urine Glucose (UA) (Negative) Urine Ketones (Negative) Urine Blood (Negative) Urine Nitrite (Negative) Urine Bilirubin (Negative) Urine Urobilinogen (Negative) Ur Leukocyte Esterase (Negative) Urine RBC (0-4) /hpf Urine WBC (0-5) /hpf Ur Epithelial Cells (0-5) /lpf Urine Crystals (None Prsent) Urine Bacteria (Negative) Imaging Data Radiologist's Impression: Radiology results as stated below per my review and the radiologist's interpretation: XR chest 1V portable HISTORY: 79 years-old Female nausea acute nausea COMPARISON: Chest radiograph 08/02/2019 TECHNIQUE: Portable AP view of the chest FINDINGS: Cardiomediastinal and hilar silhouettes are within normal limits. There is no pneumothorax, pleural effusion, focal airspace consolidation or overt pulmonary edema. Degenerative changes of the shoulders and spine. IMPRESSION: No acute process. ACT 112: Negative or not required by law. The above report was generated using voice recognition software. It may contain grammatical, syntax or spelling errors. Electronically signed by: Jeff Bean M.D. 08/23/2019 2:38 PM ECG Data Attestation: I personally reviewed and interpreted this ECG as follows: Indication: + nausea and + weakness Rate (beats per minute): 77 Rhythm: + sinus rhythm ECG Intervals/blocks: + First degree AV block and + Left anterior fascicular block ECG ST segments: no ST depression and no ST elevation ECG Findings: + LVH and + Other (QT-c 475. QRS 124. ) Blood Pressure Blood Pressure Findings: Elevated blood pressure Blood Pressure Disposition: further management by hospitalist MARIETTA Christiansen The patient is a pleasant 79-year-old woman who presents emergency department with dizziness, generalized weakness and nausea that began today after eating breakfast per HPI. Symptoms occur in the setting of being admitted to the hospital at the end of July for gastroenteritis with electrolyte abno rmalities including hyponatremia and hypokalemia as well as hypomagnesemia. On arrival the patient is fatigued appearing but no acute distress, afebrile stable vital signs. EKG with LAFB without overt acute ischemia. Chest x-ray negative for acute process. WBC, hemoglobin and platelets within normal limits. Chemistry without acidosis. Sodium 128 which is decreased from recent however not as severe as her last admission. BUN/creatinine> 20 consistent with the patient's clinically dry appearance. Magnesium 1.3 with repletion provided. Troponin negative/undetectable. Lipase within normal limits. UA with 1+ bacteria but otherwise no WBCs. Patient was reevaluated and feeling improved however still feeling generally weak. Given the patient's electrolyte abnormalities reasonable to admit for further repletion. Patient was agreeable with this. Case was discussed with Dr. Hyatt, [facility] [place] [facility] hospitalist, who will evaluate the patient for admission. Impression & Plan Hyponatremia, Hypomagnesemia, Dizziness, Nausea Discharge Plan Visit Data *Final* Discharge Date/Time: 08/23/19 18:17 Chief Complaint: Nausea ED Provider: Loco Lobato Discharge Problem: Hyponatremia, Hypomagnesemia, Dizziness, Nausea Patient Disposition: Admitted As Inpatient Discharge Instructions Interventions: ED Discharge Assessment Last Done: 08/23/19 18:17 The scribe's documentation has been prepared under my direction and personally reviewed by me in its entirety. I confirm that the note above accurately r eflects all work, treatment, procedures, and medical decision making performed by me.
[2019-08-23] MEDS ORDERED: ONDANSETRON INJ 2 MG/ML 2 ML VIAL IV PRN (21:29)
--- NOTE | 2019-08-23 21:43 | Hospitalist Progress Note ---
Date of Service August 23, 2019 Assessment & Plan (1) Vaso vagal episode: Will order Zofran prn N/V Give 1L NSS now then LR or NSS 150ml/hr overnight. (2) Hypomagnesemia: Await results -> if low replace with IV Mag If normal range ok to give oral mag as scheduled tonight. (3) Hyponatremia: Await results (4) Dehydration: See above. Subjective Responded to code purple. Patient had episode of vomiting with associated near syncope and borderline hypotension. She is admitted with diarrhea, hypomag, and hyponatremia. BP sys was 100's. I ordered 1 L NSS wide open. Glucose was 130. Pox at times bordered on 91-92% thus 2L nc was ordered. I repeated a Mag and chem 7 - awaiting results. She has no chest pain or SOB. No fever. Results & Data Vital Signs (Past 12 Hours) Vital Signs Temp Pulse Pulse Resp BP BP Pulse Ox 08/23/19 19:40 36.7 C 74 20 119/75 94 08/23/19 18:00 77 19 121/67 98 08/23/19 16:00 82 18 131/75 97 08/23/19 13:43 77 16 131/75 97 08/23/19 12:40 37.0 C 79 21 186/103 H 97 PG Care Time/CCT Total # of Minutes Spent Total Time Spent with Patient: Total time spent is greater than 50% in coordination of care (as documented) at patient's floor/unit and/or counseling patient:
[2019-08-23] MEDS ORDERED: ACETAMINOPHEN 325 MG TAB PO PRN (21:46)
[2019-08-23] MEDS ORDERED: MoRPHine SULFATE 2 MG/ML CARP IV PRN (21:46)
[2019-08-23] MEDS ORDERED: KETOROLAC TROMETHAMINE 15 MG/ML VIAL IV PRN (21:46)
[2019-08-23 22:11] LABS: BUN Creatinine Ratio 16.8 (10-20); Calcium 10.1 mg/dl (8.5-10.1); Est GFR (African American) 64.5; Est GFR (Non-African American) 55.6; Potassium 2.9 mmol/L (3.5-5.1)
[2019-08-23] MEDS: LACTATED RINGER'S 1,000 ML IV SCH (22:51)
[2019-08-23] MEDS: MAGNESIUM OXIDE 400 MG TAB PO SCH (23:15)
[2019-08-23] MEDS: HEPARIN SOD 5,000 UNIT/0.5 ML VIAL SQ SCH (23:15)
[2019-08-23] MEDS: OMEGA-3 (PURIFIED FISH OIL) 1 GM CAP PO SCH (23:16)
[2019-08-24] MEDS: POTASSIUM CHLORIDE / WTR 10 MEQ/100 ML PLCT IV SCH ×4 (00:51→04:05)
[2019-08-24] MEDS: LACTATED RINGER'S 1,000 ML IV SCH (05:40)
[2019-08-24 08:17] LABS: Hematocrit (blood only) 33.9 % (37-47); Hemoglobin 12.1 g/dL (12.0-16.0); Mean Corpuscular Hemoglobin 30.7 pg (25-34); Mean Corpuscular Hgb Conc 35.7 g/dL (32-36); Mean Platelet Volume 8.5 fL (7.4-10.4); Platelet Count 225 K/uL (130-400); RDW Coefficient of Variation 12.6 % (11.5-14.5); Red Blood Count 3.94 M/uL (4.2-5.4); White Blood Count 5.43 K/uL (4.8-10.8)
[2019-08-24] MEDS: OMEGA-3 (PURIFIED FISH OIL) 1 GM CAP PO SCH ×2 (08:35→20:03)
[2019-08-24] MEDS: AMLODIPINE BESYLATE 5 MG TAB PO SCH (08:36)
[2019-08-24] MEDS: ATORVASTATIN 10 MG TAB PO SCH (08:36)
[2019-08-24] MEDS: MAGNESIUM OXIDE 400 MG TAB PO SCH ×2 (08:36→20:03)
[2019-08-24] MEDS: LACTOBACILLUS ACIDOPHILUS 1 GM PACK PO SCH (08:36)
[2019-08-24] MEDS: MULTIVITAMIN TAB PO SCH (08:36)
[2019-08-24] MEDS: ENALAPRIL MALEATE 10 MG TAB PO SCH (08:36)
[2019-08-24] MEDS: PANTOprazole 40 MG TAB PO SCH (08:36)
[2019-08-24] MEDS: HEPARIN SOD 5,000 UNIT/0.5 ML VIAL SQ SCH ×2 (08:37→20:04)
[2019-08-24 08:55] LABS: Albumin Level 3.5 gm/dl (3.4-5.0); BUN Creatinine Ratio 15.7 (10-20); Calcium 9.6 mg/dl (8.5-10.1); Creatinine Clr Calc Pharmacy 55.8 ml/min; Est GFR (African American) 83.7; Est GFR (Non-African American) 72.2; Potassium 3.6 mmol/L (3.5-5.1)
[2019-08-24 08:56] LABS: Bilirubin,Total 0.7 mg/dl (0.2-1); Globulin 3.3 gm/dl (2.5-4.0); Total Protein 6.8 gm/dl (6.4-8.2)
[2019-08-24] MEDS ORDERED: NON-FORMULARY MEDICATION (Amlodipine-Benazepril 1 CAP) PO SCH (09:00)
[2019-08-24 09:12] LABS: Estimated Average Glucose 148 mg/dl; Hemoglobin A1C 6.8 % (4.5-5.6)
--- NOTE | 2019-08-24 15:11 | Nephrology Consultation ---
Date of Consultation August 24, 2019 Assessment & Plan (1) Hyponatremia: Improvement with IV crystalloid suggest that this was related to volume depletion. Patient's volume status currently appears to be euvolemic. I agree with holding IV fluids at this time. Will replete a serum sodium level tomorrow. Clinical history is suggestive of dehydration and solute losses associated with recurrent diarrhea. The etiology of this is unclear. Patient did have a colonoscopy approximately 2 years ago for general screening. She does not take any laxatives or stool softeners. Ultimately additional evaluation regarding this symptom may be necessary. (2) Hypomagnesemia: The patient is receiving appropriate replacement. I would avoid continued oral replacement given her recurrent GI symptoms including diarrhea. Once her serum magnesium was repleted will continue to monitor closely. Would also consider that her PPI is likely contributing to this and we should consider the risk versus benefit of continuing the medication. It would also be reasonable to check a vitamin-D level to make sure that this is adequate. (3) HTN (hypertension): Emily be closely monitored. Blood pressure was appropriate when antihypertensive medications were held previously. Hydrochlorothiazide was discontinued during her prior hospitalization. She remains on amlodipine and benazepril at home. I would restart benazepril but hold amlodipine unless BP remains elevated. (4) Diabetes: We discussed the patient's dietary concerns in detail today. It seems her diet may be too low and solute. I encouraged her expand on this. She is tolerating Metformin well. This does not seem to be contributing to her GI symptoms. No changes in therapy remains at this time. History of Present Illness Reason for Consultation: Hyponatremia, hypomagnesemia Requesting Physician: Sivakumar Mclean Attending Physician: Sivakumar Mclean History of Present Illness Otilia is a 79-year-old female who was admitted to [facility] yesterday for management of multiple electrolyte abnormalities and further assessment regarding presyncope and diarrhea. Symptoms have resolved. Otilia presented to the ER yesterday following a presyncopal episode. She describes a sudden onset of intense lightheadedness that occurred while she was walking. She had been feeling lightheaded for a few days. She reports orthostatics symptoms. Orthostasis has also improved. She denies any chest pain or palpitations. She denied any dyspnea or diaphoresis. She has had similar symptoms in the past associated with dehydration. She also noted that she had had loose stool for approximately 24-48 hours prior to admission. Otilia has suffered with recurrent intermittent diarrhea for the past several months. Once or twice per week, for 24-48 hours she will have frequent loose bowel movements that are often watery and occasionally oily. Following these episodes she will not have any bowel movements for several days. She denies any abdominal pain. Her appetite is unaffected. That she has been watching her diet closely to avoid eating too much sugar or carbohydrate. She has been conscientious about eating a high potassium diet since her prior admission. Otilia had a prior similar admission to [facility] from August 02 to . During this admission hydroch lorothiazide was held. She has not restarted the medication. She does have hypertension was treated with amlodipine and benazepril. Patient's medical history is also notable for diabetes mellitus which treated with metformin. She suffers from chronic back pain related to degenerative disc disease in spinal stenosis. She has had recent flare of sciatica which is treated with ibuprofen. In the emergency department evaluation included an EKG which showed normal sinus rhythm with left anterior fascicular block 3 no acute changes. Urinalysis demonstrated trace blood with a acellular microscopy. Chest x-ray was normal. Otilia has responded well to IV fluids. Her serum sodium has improved to 133 millimoles per liter. She felt well at the time of my assessment. She was seen and evaluated with her at the bedside. Allergies Allergy/AdvReac Type Severity Reaction Status Date / Time pollen extracts Allergy Unknown "SPRING Verified 08/23/19 13:54 ALLERGIES" Home Medications Home Medications Medication Instructions Recorded Confirmed Type Prilosec OTC 20 mg PO DAILY 08/02/19 08/23/19 History Probiotic 3,000 mmu cells PO DAILY 08/02/19 08/23/19 History Xiidra 1 drp OPHTHALMIC (EYE) BID 08/02/19 08/23/19 History amlodipine-benazepril 1 cap PO DAILY 08/02/19 08/23/19 History multivitamin 1 tab PO DAILY 08/02/19 08/23/19 History omega 9-onz-hrl-fish oil [Fish Oil] 1 cap PO BID 08/02/19 08/23/19 History metformin 500 mg PO DAILY #0 tab 08/03/19 08/23/19 Rx atorvastatin 10 mg PO DAILY 08/23/19 08/23/19 History cyanocobalamin (vitamin B-12) 0 mcg PO DAILY 08/23/19 08/23/19 History [Vitamin B-12] magnesium 0 mg PO DAILY 08/23/19 08/23/19 History Patient History Medical History Dehydration (Inactive) Diabetes (Chronic) HTN (hypertension) (Chronic) Migraines (Inactive) Nausea (Inactive) Vomiting (Inactive) Surgical History No pertinent past surgical history Family History Other No pertinent family history Social History Preferred Language: Wolof Communication Ability: Effective Automation Test Engineer Required: No Beliefs That Will Affect Care: None Current Living Situation: Spouse Feels Safe at Home: Yes Smoking Status: Never smoker Hx Alcohol Use: Yes Hx Substance Use: No Review of Systems Review of Systems: All systems reviewed & are unremarkable except as noted in HPI & below Physical Exam Constitutional: well developed; no acute distress Eyes: no scleral abnormality and no corneal abnormality ENMT: Mouth: no oral mucosal abnormality and oral mucous membranes not dry Neck: normal visual inspection and trachea midline Respiratory: normal respiratory effort Auscultation: lungs clear to auscultation bilaterally Cardiovascular: Rate/Rhythm: regular rate Heart Sounds: normal S1 and normal S2 Extremities: no edema Musculoskeletal: Extremities: no cyanosis and no clubbing Skin: normal turgor; no lesions Neurologic: Motor/Sensory: no tremor and no asterixis Psychiatric: Orientation: alert and oriented x 3 Results & Data Vital Signs (Past 12 Hours) Vital Signs Temp Pulse Resp BP Pulse Ox 08/24/19 11:20 36.5 C 76 18 126/76 92 08/24/19 07:19 36.5 C 76 18 120/74 100 08/24/19 04:00 36.7 C 70 20 104/65 98 PG Care Time/CCT Total # of Minutes Spent Total Time Spent with Patient: Total time spent is greater than 50% in coordination of care (as documented) at patient's floor/unit and/or counseling patient:
--- NOTE | 2019-08-24 15:33 | Electrocardiogram Report ---
Test Reason : Blood Pressure : / mmHG Vent. Rate : 077 BPM Atrial Rate : 077 BPM P-R Int : 216 ms QRS Dur : 124 ms QT Int : 420 ms P-R-T Axes : 047 -64 058 degrees QTc Int : 475 ms Sinus rhythm with 1st degree A-V block Left anterior fascicular block Left ventricular hypertrophy with QRS widening Abnormal ECG When compared with ECG of 02-AUG-2019 17:14, No significant change was found Confirmed by Dale Shah ([id number]) on 08/24/2019 3:32:32 PM Referred By: REFERRED SELF Confirmed By:Dale Shah
--- NOTE | 2019-08-24 22:25 | Hospitalist Progress Note ---
Date of Service August 24, 2019 Assessment & Plan (1) Hyponatremia: Given how her sodium has improved with IV fluids, this was likely dehydration. Patient reports having episodes of intermittent diarrhea in the past. Patient denies taking any diuretic since her last discharge. May consider switching metformin to the extended release version. May also consider a followup with GI as an outpatient. It appears urine sodium was not obtained, will see if lab can use ER sample. (2) Hypomagnesemia: resolved. (3) Weakness: Likely secondary to electrolyte abnormality. (4) HTN (hypertension): restarted home meds. (5) Diabetes: a1c: 6.8 Full code Subjective Patient reports feeling well. She has no new complaints. Review of Systems Review of Systems: All systems reviewed & are unremarkable except as noted in HPI & below Physical Exam Constitutional: well developed and well nourished; no acute distress Eyes: PERRL, conjunctivae normal, anicteric sclerae ENMT: external ear and nose normal, oropharynx normal Neck: trachea midline, no thyromegaly Respiratory: normal respiratory effort, lungs clear to auscultation Cardiovascular: RRR, no murmur, no edema Gastrointestinal (Abdomen): normal bowel sounds, soft, nontender, no hepatosplenomegaly Musculoskeletal: no cyanosis or clubbing, extremities motor strength 5/5 Skin: no rashes, warm and dry Neurologic: CN's II-XI intact bilaterally Psychiatric: A+Ox3, euthymic affect Results & Data Vital Signs (Past 12 Hours) Vital Signs Temp Pulse Pulse Resp BP Pulse Ox 08/24/19 19:57 36.3 C L 67 16 120/70 97 08/24/19 16:13 67 08/24/19 15:33 36.4 C L 65 18 125/80 99 08/24/19 11:20 36.5 C 76 18 126/76 92 PG Care Time/CCT Total # of Minutes Spent Total Time Spent with Patient: Total time spent is greater than 50% in coordination of care (as documented) at patient's floor/unit and/or counseling patient:
[2019-08-25] MEDS: MAGNESIUM OXIDE 400 MG TAB PO SCH (08:06)
[2019-08-25] MEDS: OMEGA-3 (PURIFIED FISH OIL) 1 GM CAP PO SCH (08:06)
[2019-08-25] MEDS: LACTOBACILLUS ACIDOPHILUS 1 GM PACK PO SCH (08:06)
[2019-08-25] MEDS: MULTIVITAMIN TAB PO SCH (08:06)
[2019-08-25] MEDS: AMLODIPINE BESYLATE 5 MG TAB PO SCH (08:06)
[2019-08-25] MEDS: PANTOprazole 40 MG TAB PO SCH (08:06)
[2019-08-25] MEDS: ATORVASTATIN 10 MG TAB PO SCH (08:06)
[2019-08-25] MEDS: HEPARIN SOD 5,000 UNIT/0.5 ML VIAL SQ SCH (08:06)
[2019-08-25] MEDS: ENALAPRIL MALEATE 10 MG TAB PO SCH (08:06)
[2019-08-25 08:25] LABS: Albumin Level 3.5 gm/dl (3.4-5.0); BUN Creatinine Ratio 15.3 (10-20); Calcium 9.4 mg/dl (8.5-10.1); Creatinine Clr Calc Pharmacy 50.1 ml/min; Est GFR (African American) 73.5; Est GFR (Non-African American) 63.4; Magnesium 1.6 mg/dl (1.8-2.4); Potassium 3.5 mmol/L (3.5-5.1)
[2019-08-25 08:26] LABS: Phosphorus 2.6 mg/dl (2.5-4.9)
--- NOTE | 2019-08-25 09:50 | Nephrology Progress Note ---
Date of Service August 25, 2019 Assessment & Plan (1) Hyponatremia: -- Hyponatremia likely due to low solute intake -- Start NaCl 1 g po daily -- Will order follow up PRP, Mg prior to outpatient visit -- I have placed order in outpatient EMR for office staff to contact patient and schedule follow up in 1 week w/ Dr. Rao -- Order placed for PRP and Mg at outpatient lab in ~ 1 week (2) Hypomagnesemia: -- Mg low normal. Hold oral Mg for now and recheck level as outpatient (3) HTN (hypertension): -- BP remains well controlled. Hold HCTZ and Amlodipine -- Benazepril has been restarted Subjective Mrs. Villanueva was seen & examined in her hospital room this morning. She reports that diarrhea has resolved. She denies palpitations or muscle weakness. She hopes to be discharged to home today. Review of Systems Constitutional: + weakness; no fever and no chills Eyes: no worsening vision and no problem reported Ear, Nose, Mouth, Throat: no problem reported Respiratory: no cough and no dyspnea Cardiovascular: no chest pain, no palpitations and no edema Gastrointestinal: no abdominal pain, no nausea, no vomiting and no diarrhea/loose stools Genitourinary: no dysuria and no hematuria Musculoskeletal: no back pain Integumentary: no rash Neurologic: no falls, no dizziness and no confusion Physical Exam Constitutional: not in distress Eyes: PERRL, conjunctivae normal, anicteric sclerae ENMT: external ear and nose normal, oropharynx normal Neck: trachea midline, no thyromegaly Respiratory: normal respiratory effort, lungs clear to auscultation Cardiovascular: RRR, no murmur, no edema Gastrointestinal (Abdomen): normal bowel sounds, soft, nontender, no hepatosplenomegaly Musculoskeletal: Extremities: no cyanosis Skin: no rashes, warm and dry Neurologic: awake; not confused Results & Data Vital Signs (Past 12 Hours) Vital Signs Temp Pulse Pulse Resp BP BP Pulse Ox 08/25/19 07:44 36.4 C L 59 L 16 129/77 99 08/25/19 07:29 78 08/25/19 01:37 64 08/24/19 23:00 36.5 C 67 18 123/75 97 Laboratory Results Laboratory Tests 08/25/19 07:45 Sodium 130 L Potassium 3.5 Chloride 94 L Carbon Dioxide 31 BUN 14 Creatinine 0.88 Magnesium 1.6 L PG Care Time/CCT Total # of Minutes Spent Total Time Spent with Patient: Total time spent is greater than 50% in coordination of care (as documented) at patient's floor/unit and/or counseling patient:
[2019-08-25] MEDS ORDERED: SODIUM CHLORIDE 1 GM TABLET PO SCH (10:30)
[2019-08-25] MEDS: MAGNESIUM SULFATE / D5W 1 GM/100 ML BAG IV SCH ×2 (10:54→11:43)
[2019-08-25] MEDS ORDERED: DOCUSATE SODIUM/SENNA 50/8.6MG TAB PO ONE (12:50)
--- NOTE | 2019-08-31 23:30 | Discharge Summary ---
Date of Service August 25, 2019 Admission HPI Per Admitting Provider 79-year-old female with past medical history of hypertension, diabetes complains today of diarrhea near syncope. Patient reports she was her usual state of health up until this morning. She felt rundown and began beging dizzy. She says she was unable to ambulate to get up from the kitchen table. She informed her and was brought to the ER. She was found to have hyponatremia and hypomagesmia At this time, she tells me she is feeling better. She has not had another bowel movement. She denies any further abdominal pain as well as fever. She does not feel her appetite is recovered. Of note, she denies any nausea or vomiting, chest pain, shortness of breath, or fever or chills. She did note that she was taking ibuprofen previously for some back pain. She denies any unusual foods, or antibiotic use. Principal Diagnosis hyponatremia Discharge Exam Constitutional: well developed and well nourished; no acute distress Eyes: PERRL, conjunctivae normal, anicteric sclerae ENMT: external ear and nose normal, oropharynx normal Neck: trachea midline, no thyromegaly Respiratory: normal respiratory effort, lungs clear to auscultation Cardiovascular: RRR, no murmur, no edema Gastrointestinal (Abdomen): normal bowel sounds, soft, nontender, no hepatosplenomegaly Musculoskeletal: no cyanosis or clubbing, extremities motor strength 5/5 Skin: no rashes, warm and dry Neurologic: CN's II-XI intact bilaterally Psychiatric: A+Ox3, euthymic affect Discharge Data Allergies Allergy/AdvReac Type Severity Reaction Status Date / Time pollen extracts Allergy Unknown "SPRING Verified 08/30/19 11:19 ALLERGIES" Consultations 08/23/19 15:11 ED Decision to Admit Stat 08/23/19 17:23 Consult Nephrology Routine Hospital Course (1) Hyponatremia: Given how her sodium has improved with IV fluids, this was likely dehydration. Patient reports having episodes of intermittent diarrhea in the past. Patient denies taking any diuretic since her last discharge. However, no episode of diarrhea, prior to this episode. will metformin to the extended release version. May also consider a followup with GI as an outpatient fotr possible microscopic colitis.. will discharge on a salt tablet and have patient followup with nephro as well. (2) Hypomagnesemia: resolved. (3) Weakness: Likely secondary to electrolyte abnormality. (4) HTN (hypertension): restarted home meds. (5) Diabetes: a1c: 6.8 Full code Total Time Total Time Spent Total Time Spent (In Minutes): 32 Discharge Plan Discharge Items Patient Disposition: Home - Self-Care Reason For Visit: HYPOMAGNESEMIA Discharge Diagnosis: hypomagnesemia, hyponatremia Activity: Resume your previous activity Non-emergency contact: Primary Care Provider Call non-emergency contact if: you have any medication questions Follow-up/Referrals: Juanita Chavez PA-C [Physician Installment Loan Collector] - 08/30/19 11:15 am (Please, follow up at [facility] Gastroenterology Office with Juanita Chavez PA-C on August 30 at 11:15 am. *If you need to change this appointment, call the office at [phone].) Martell Rao DO [Physician] - 09/07/19 8:30 am (Please, follow up at [facility] with Dr. Rao on September 07 at 8:30 am. *The office is located in [address] of [facility], next to this [facility]. If you need to change this appointment, call the office at [phone].) Trav Meraz MD [Primary Care Provider] - 08/30/19 9:30 am (Please, follow up with Dr. Meraz on WednesdayAugust 30 at 9:30 am. *If you need to change this appointment, call the office at [phone].) Diet: Regular Addtl Attending Provider Instructions: will recommend followup with Nephrology in 1 week. (to further evaluate yoru electrolyte changes) Will also place you on salt tablets once a day for 1 week. Will recommend folllowup with PCP in 1-2 weeks. Labs will be scheduled for wednesday. Pending Studies at Discharge: No Stand-Alone Forms: My [facility] [employer], Smoking Cessation Medications and DC Order Prescriptions: New magnesium oxide 400 mg (241.3 mg magnesium) Tablet 400 mg PO BID Qty: 14 RF: 0 sodium chloride 1 gram tablet 1,000 mg PO DAILY Qty: 7 RF: 0 metformin 500 mg tablet extended release 24 hr 500 mg PO DAILY Qty: 30 RF: 0 Continued multivitamin Tablet 1 tab PO DAILY RF: 0 amlodipine-benazepril 10-20 mg Capsule 1 cap PO DAILY RF: 0 omega 2-pag-gxv-fish oil [Fish Oil] 1,000 mg (120 mg-180 mg) Capsule 1 cap PO BID RF: 0 Probiotic 3 billion cell Capsule 3,000 mmu cells PO DAILY RF: 0 atorvastatin 10 mg tablet 10 mg PO DAILY RF: 0 cyanocobalamin (vitamin B-12) [Vitamin B-12] 1,000 mcg Tablet 0 mcg PO DAILY RF: 0 Discontinued metformin 500 mg Tablet 500 mg PO DAILY Qty: 0 RF: 0 magnesium 200 mg Tablet 0 mg PO DAILY RF: 0 Discharge Orders: Discharge Order (Routine); Ordered 08/25/19 Ordered By: Sivakumar Mclean Admission Data Admit Date/Time: 08/23/19 17:17 Attending Provider: Sivakumar Mclean Admit Provider: Sivakumar Mclean Primary Care Provider: Trav Meraz Other Providers: Vel Hyatt ; Martell Rao Other Interventions: Discharge Summary Assessment (RN) Last Done: 08/25/19 11:11 DC Date/Time DO NOT enter until pt leaves facility: 08/25/19 14:15 Coding Level of Care Code D/C Day Management >30 mins Diagnoses Hyponatremia E87.1 Hypomagnesemia E83.42 Weakness R53.1 HTN (hypertension) I10 Diabetes E11.9
== END 2019-08-25 14:15 | disposition home or self-care (01) ==
LOC: ED 12:38 → 4W 12:38 → 2N 08-24 00:33

== ENCOUNTER 2024-07-22 15:52 | Inpatient (IN) ==
[2024-07-22 16:32] LABS: Basophils # (auto) 0.03 K/uL (0.00-0.20); Basophils % (auto) 0.5 %; Eosinophils % (auto) 1.7 %; Hematocrit (blood only) 33.8 % (37.0-47.0); Hemoglobin 11.6 g/dl (12.0-16.0); Immature Granulocytes # (auto) 0.01 K/uL (0.01-0.20); Immature Granulocytes % (auto) 0.2 %; Lymphocytes # (auto) 1.47 K/uL (1.20-3.40); Lymphocytes % (auto) 24.9 %; Mean Corpuscular Hemoglobin 30.3 pg (25.0-34.0); Mean Corpuscular Hgb Conc 34.3 g/dL (32.0-36.0); Mean Corpuscular Volume 88.3 fL (80.0-100.0); Mean Platelet Volume 9.7 fL (9.4-12.4); Monocytes # (auto) 0.39 K/uL (0.11-0.59); Monocytes % (auto) 6.6 %; Neutrophils # (auto) 3.91 K/uL (1.40-6.50); Neutrophils % (auto) 66.1 %; Platelet Count 211 K/uL (130-400); RDW Coefficient of Variation 12.1 % (11.5-14.5); RDW Standard Deviation 39.1 fL (36.4-46.3); Red Blood Count 3.83 M/uL (4.20-5.40); White Blood Count 5.91 K/ul (4.8-10.8)
[2024-07-22 16:41] LABS: Base Excess VBG 6.1 mEq/L; HCO3 VBG 32 mmol/L; Oxygen Saturation VBG 62.9 %; PCO2 VBG 49 mmHg (38-50); PO2 VBG 35 mmHg; pH VBG 7.42 (7.36-7.41)
[2024-07-22 16:52] LABS: BUN Creatinine Ratio 28.3 (10-20); Bilirubin Direct 0.2 mg/dl (0-0.2); Bilirubin,Total 0.9 mg/dl (0.2-1.0); Creatinine Clr Calc Pharmacy 40.7 ml/min; Magnesium 1.2 mg/dl (1.7-2.4); Potassium 3.1 mmol/L (3.5-5.1); Total Protein 6.7 gm/dl (6.0-8.3)
--- NOTE | 2024-07-22 16:52 | XRay Report ---
EXAM: Radiograph of the Chest 1 View INDICATION: Sepsis. TECHNIQUE: Frontal view of the chest. COMPARISON: 07/18/2024 FINDINGS: Lungs and pleural spaces: No consolidation or pulmonary edema. No pleural effusion or pneumothorax. Heart: Shape and configuration within normal limits allowing for technique. Mediastinum: Normal contour. Bones/joints: Degenerative changes noted throughout the spine. No acute osseous abnormality seen. Calcific tendinitis right shoulder. Soft tissues: No abnormality noted. No radiopaque foreign body noted. Vasculature: Stable ectatic aorta. Upper abdomen: No abnormality noted. IMPRESSION: No acute cardiopulmonary disease. ACT 112: Negative or not required by law. Electronically signed by Amanda Scott 07-22-2024 4:52 PM
[2024-07-22 17:01] LABS: Troponin I High Sensitivity 7.1 pg/ml (0-14)
[2024-07-22 17:02] LABS: INR 1.1 (0.9-1.1); Partial Thromboplastin Time 27 Seconds (21-31); Prothrombin Time 11.5 Seconds (9.0-12.0)
--- NOTE | 2024-07-22 17:17 | CT Scan Report ---
EXAM: CT Head Without Intravenous Contrast INDICATION: Headache. TECHNIQUE: Axial computed tomography images of the head/brain without intravenous contrast. Sagittal and/or coronal reformats are provided. Sagittal and coronal reformatted images were created and reviewed. This CT exam was performed using one or more of the following dose reduction techniques: automated exposure control, adjustment of the mA and/or kV according to patient size, and/or use of iterative reconstruction technique. COMPARISON: 07/08/2024 FINDINGS: Limitations: None. Brain and extra-axial spaces: There is age appropriate cortical atrophy and chronic ischemic periventricular white matter hypodensity. No acute infarct, hemorrhage or mass noted. 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 Bones/joints: No acute changes. Soft tissues: No significant abnormality noted. Vasculature: No acute abnormality noted. Sinuses: No layering fluid in the visualized portions of the paranasal sinuses. Mastoid air cells: No mastoid effusion. Orbits: No significant abnormality noted. IMPRESSION: Cerebral atrophy. No acute changes. ACT 112: Negative or not required by law. Electronically signed by Amanda Scott 07-22-2024 5:15 PM
[2024-07-22 17:29] LABS: Adenovirus PCR Not Detected (NotDetected); Bordetella parapertussis PCR Not Detected (NotDetected); Bordetella pertussis PCR Not Detected (NotDetected); Chlamydia pneumoniae PCR Not Detected (NotDetected); Coronavirus 229E PCR Not Detected (NotDetected); Coronavirus CoV-2 (COVID19)PCR Not Detected (NotDetected); Coronavirus HKU1 PCR Not Detected (NotDetected); Coronavirus NL63 PCR Not Detected (NotDetected); Coronavirus OC43PCR Not Detected (NotDetected); Human Metapneumovirus PCR Not Detected (NotDetected); Influenza A PCR Not Detected (NotDetected); Influenza B PCR Not Detected (NotDetected); Mycoplasma pneumoniae PCR Not Detected (NotDetected); Parainfluenza Virus 1 PCR Not Detected (NotDetected); Parainfluenza Virus 2 PCR Not Detected (NotDetected); Parainfluenza Virus 3 PCR Not Detected (NotDetected); Parainfluenza Virus 4 PCR Not Detected (NotDetected); Respiratory Syncytial VirusPCR Not Detected (NotDetected); Rhinovirus/Enterovirus PCR Not Detected (NotDetected)
[2024-07-22] MEDS ORDERED: POTASSIUM CHLORIDE 10 MEQ TABCR PO STA (17:35)
[2024-07-22 17:38] LABS: Appearance Urine Clear (Clear); Bacteria Urine Automated None Seen (None Seen); Bilirubin Urine Negative (Negative); Blood Urine Negative (Negative); Cast Urine Automated 0-2 /lpf (0-2); Color Urine Yellow; Epithelial Cell Urine Auto 0-2 /hpf (0-2); Glucose Urine UA Negative (Negative); Ketones Urine Negative (Negative); Leukocyte Esterase Urine Negative (Negative); Nitrite Urine Negative (Negative); Protein Urine Trace (Negative); RBC Urine Automated 0-2 /hpf (0-2); Urobilinogen Urine Negative (Negative); WBC Urine Automated 0-5 /hpf (0-5)
[2024-07-22] MEDS: MAGNESIUM SULFATE / D5W 1 GM/100 ML BAG IV SCH (17:50)
--- NOTE | 2024-07-22 18:27 | History & Physical Report ---
Date of Service July 22, 2024 Assessment & Plan (1) Diarrhea: Plan: This is an 84-year-old female with past medical history of hypertension, atorvastatin, B12 deficiency, neuropathy, type 2 diabetes who presented to the emergency department on 07/22/2024 with a chief complaint of progressive weakness. Stool Biofire and C diff pending if negative consider Questran to aide with diarrhea CTAP pending CBC without leukocytosis, mild anemia of 11.6. BMP with K of 3.1 and Mag of 1.2 likely secondary to diarrhea Procal negative Urinalysis negative. given patient's diarrhea, hold off on abx therapy unless symptomatic for a UTI. TSH WNL 07/18 Blood cultures pending PT/OT consults for ongoing weakness. AM CBC, BMP, Mag (2) Hypokalemia: Plan: K of 3.1 on admission improved from 2.9 on 07/18 when she was in the ED s/p 40meq K in ED replete as necessary AM BMP (3) Hypomagnesemia: Plan: Mag of 1.2 on admission, was also 1.2 on 07/18 s/p 2g IV mag in ED replete as necessary AM Magnesium (4) Diabetes: Plan: last hgb a1c 07/13 6.6% on metformin outpatient, plan to continue inpatient. On gabapentin for neuropathy, continue Plan Chronic conditions: HTN: continue amlodipine-benazepril HLD: statin GERD: pepcid Mental health: fluoxetine Diet: carb consistent Code status: DNR/DNI DVT prophylaxis: Lovenox Disposition: admit to medical updated daughter at bedside w/ admission plan 07/22. Case was discussed with Dr. Mclean at time of admission. History of Present Illness Primary Care Provider: Billy Nicholson MD This is an 84-year-old female with past medical history of hypertension, atorvastatin, B12 deficiency, neuropathy, type 2 diabetes who presented to the emergency department on 07/22/2024 with a chief complaint of progressive weakness. The patient was seen and examined at bedside with her daughter present. Patient was recently in our emergency department on 07/18/2024. At that time she had been seen for a fall and also was experiencing some dysuria. She was discharged home with an antibiotic however that was unfortunately sent to the wrong pharmacy and she had never taken it. Patient states that she has not had any urinary symptoms in about a week or so now. She denied any dysuria, frequency, urgency within the last 24 to 48 hours. Patient states that she has just felt weak and she does not feel that she is getting any stronger. She admits that she has been having ongoing diarrhea for approximately a year now. She states that she can move her bowels anywhere from 0-3 times daily. She is unsure if she has been around any sick contacts recently as she lives in an assisted living facility. She denies any changes in her medications. She denies any chest pain, shortness of breath, lower extremity edema. She denies any abdominal pain. She does admit to feeling nauseous but denies any actual vomiting. She reports her appetite has been decreased as well. While in the emergency department she did undergo labs which included a CBC without leukocytosis. Mild anemia at 11.6. Her potassium was low at 3.1 and her magnesium was low at 1.2. These were repleted with 40 mEq of potassium in 2 g IV magnesium. Her procalcitonin was negative and her urinalysis was negative as well. Blood cultures were collected and are pending. Head CT and chest x- ray were both negative. Allergies Allergy/AdvReac Type Severity Reaction Status Date / Time pollen extracts Allergy Unknown "SPRING Verified 05/07/24 11:58 ALLERGIES" - ITCHY EYES, RUNNY NOSE No Known Drug Allergies Allergy Verified 05/07/24 11:58 Home Medications Medication Instructions Recorded Confirmed Type multivitamin 1 tab PO DAILY 08/02/19 07/22/24 History atorvastatin 10 mg tablet 10 mg PO QAM 08/23/19 07/22/24 History cyanocobalamin (vitamin B-12) 1,000 mcg PO QAM 08/23/19 07/22/24 History 1,000 mcg tablet (Vitamin B-12) famotidine 10 mg tablet (Pepcid AC) 10 mg PO QAM 09/07/19 07/22/24 History amlodipine 10 mg-benazepril 20 mg 1 cap PO QAM 01/03/20 07/22/24 History capsule gabapentin 100 mg capsule 400 mg PO TID 06/23/21 07/22/24 History ibuprofen 600 mg tablet 600 mg PO TID 12/20/21 07/22/24 History meclizine 25 mg tablet 25 mg PO TID PRN dizziness #12 tabs 05/14/22 12/14/24 Rx metformin 500 mg tablet,extended 500 mg PO BID 03/23/22 07/22/24 History release 24 hr fluoxetine 10 mg tablet 10 mg PO DAILY #30 tabs 03/24/22 07/22/24 Rx erythromycin 5 mg/gram (0.5 %) eye 0.5 inch ophthalmic (eye) QID 7 05/07/24 07/22/24 Rx ointment days #3.5 grams Past Med/Surg History Problem List (Updated 07/23/24 @ 00:06 by Preston Velazco) Fall (Acute) Acute dehydration (Acute) Hypomagnesemia (Acute) Hypokalemia (Acute) Dysuria (Acute) Left lumbar radiculopathy Hyponatremia (Acute) Vaso vagal episode Medical History Compression fracture History of dehydration JUL 2019 & AUG 2019 - [facility] ED FOR WEAKNESS, VOMITING, DEHYDRATION, LOW POTASSIUM AND MAGNESIUM LEVELS ( HX SUPPLEMENT FOR AND COMPLETED) - F/U DR MORRIS UPCOMING OCTOBER 30 2019 SOB (shortness of breath) on exertion WITH STAIRS Moist mucous membranes of ear, nose, and throat CHRONIC MUCOUS OF THE THROAT, RASPY VOICE Eye infection R EYE, DX AUG 2019 - PRESCRIBED DOXYCYCLINE PT DID NOT TAKE - EYE CURRENTLY INFLAMMED Urinary incontinence Acid reflux Neck problem CHRONIC STIFF NECK, CRACKS - LIMITED ROM SIDE TO SIDE Scoliosis Arthritis BACK Hypomagnesemia HTN (hypertension) Diabetes Migraines HX OF Surgical History History of endoscopy History of colonoscopy with polypectomy (11/2017) Dr. 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 Other Information That Helps Us Care for You: No Feels Safe at Home: Yes Safety Concerns: Feels Safe At This Time Assistive Devices: Walker Review of Systems 2 Review of Systems: All systems reviewed & are unremarkable except as noted in HPI & below Physical Exam 2 Constitutional: WD/WN, vitals as above Eyes: PERRL, conjunctivae normal, anicteric sclerae Respiratory: normal respiratory effort, lungs clear to auscultation Cardiovascular: RRR, no murmur, no edema Gastrointestinal (Abdomen): normal bowel sounds, soft, nontender, no hepatosplenomegaly Psychiatric: A+Ox3, euthymic affect Results & Data Results & Data Vital Signs (Past 12 Hours) Vital Signs Temp Pulse Pulse Resp BP BP Pulse Ox 07/22/24 17:14 63 19 166/81 H 99 07/22/24 16:10 66 18 96 07/22/24 16:10 62 18 158/84 H 96 07/22/24 15:56 36.5 C 66 19 166/79 H 99 O2 Del Method 07/22/24 17:14 Room Air 07/22/24 16:10 Room Air 07/22/24 16:10 Room Air 07/22/24 15:56 Room Air Laboratory Results 07/22/24 16:11 07/22/24 16:11 Diagnostic Findings Chest X-Ray 07/22/24 16:10 EXAM: Radiograph of the Chest 1 View INDICATION: Sepsis. TECHNIQUE: Frontal view of the chest. COMPARISON: 07/18/2024 FINDINGS: Lungs and pleural spaces: No consolidation or pulmonary edema. No pleural effusion or pneumothorax. Heart: Shape and configuration within normal limits allowing for technique. Mediastinum: Normal contour. Bones/joints: Degenerative changes noted throughout the spine. No acute osseous abnormality seen. Calcific tendinitis right shoulder. Soft tissues: No abnormality noted. No radiopaque foreign body noted. Vasculature: Stable ectatic aorta. Upper abdomen: No abnormality noted. IMPRESSION: No acute cardiopulmonary disease. ACT 112: Negative or not required by law. Electronically signed by Amanda Scott 07-22-2024 4:[address] 07/22/24 16:10 EXAM: CT Head Without Intravenous Contrast INDICATION: Headache. TECHNIQUE: Axial computed tomography images of the head/brain without intravenous contrast. Sagittal and/or coronal reformats are provided. Sagittal and coronal reformatted images were created and reviewed. This CT exam was performed using one or more of the following dose reduction techniques: automated exposure control, adjustment of the mA and/or kV according to patient size, and/or use of iterative reconstruction technique. COMPARISON: 07/08/2024 FINDINGS: Limitations: None. Brain and extra-axial spaces: There is age appropriate cortical atrophy and chronic ischemic periventricular white matter hypodensity. No acute infarct, hemorrhage or mass noted. 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 Bones/joints: No acute changes. Soft tissues: No significant abnormality noted. Vasculature: No acute abnormality noted. Sinuses: No layering fluid in the visualized portions of the paranasal sinuses. Mastoid air cells: No mastoid effusion. Orbits: No significant abnormality noted. IMPRESSION: Cerebral atrophy. No acute changes. ACT 112: Negative or not required by law. Electronically signed by Amanda Scott 07-22-2024 5:15 PM Supervising Physician Co-Signing Physician Notes During face to face encounter, I obtained a history and physical examination, discussed plan of care with patient. I discussed plan of care with CHRISTINE Holland. I reviewed above note and agree with it except for the following: Patient admitted fr diarrhea. will hold metformin in AM. will hold antibiotics and monitor. PG Care Time/CCT Total # of Minutes Spent Total Time Spent with Patient: Total time spent is greater than 50% in coordination of care (as documented) at patient's floor/unit and/or counseling patient: Coding Level of Care Code 73730 INT INP/OBS CARE 2/55MIN Diagnoses Diarrhea R19.7 Hypokalemia E87.6 Hypomagnesemia E83.42 Diabetes E11.9 Diabetes mellitus type: type 2 (4) Diabetes Diabetes mellitus type: type 2
--- NOTE | 2024-07-22 18:59 | CT Scan Report ---
EXAM: CT Abdomen and Pelvis Without Intravenous Contrast INDICATION: Diarrhea. TECHNIQUE: Axial computed tomography images of the abdomen and pelvis without intravenous contrast. Sagittal and coronal reformatted images were created and reviewed. This CT exam was performed using one or more of the following dose reduction techniques: automated exposure control, adjustment of the mA and/or kV according to patient size, and/or use of iterative reconstruction technique. COMPARISON: No relevant prior studies available. FINDINGS: Limitations: None. Lung bases: No abnormality noted. Pleural space: No visualized pleural effusion or pneumothorax. Heart: No abnormality noted. Mediastinum: No abnormality noted. ABDOMEN: Liver: Lack of intravenous contrast limits detection of some masses. No abnormality noted. Gallbladder and bile ducts: Cholecystectomy. No ductal dilation or stone noted. Pancreas: No pancreatic mass, calcification, inflammation or ductal dilation noted. Spleen: No significant abnormality noted. Adrenals: No significant abnormality noted. Kidneys and ureters: Simple right renal cysts. No follow-up of these simple cysts is necessary. There is mild cortical scarring of both kidneys. No stones or hydronephrosis. Stomach and bowel: Moderate amounts of stool throughout the colon with diverticulosis. No diverticulitis. No obstruction. PELVIS: Appendix: No findings to suggest acute appendicitis. Bladder: Appears normal for the degree of filling. No stones or inflammation. No large mass. Masses may not be detected in the absence of opacification. Reproductive: No abnormalities noted. ABDOMEN and PELVIS: Intraperitoneal space: No free air. No significant fluid collection. Bones/joints: No acute changes. Soft tissues: In the right gluteal fat is a soft tissue collection measuring 3.3 x 3.1 x 2.1 cm posterior to the proximal shaft of the femur. There is mild surrounding edema. Vasculature: No abdominal aortic aneurysm. Lymph nodes: No pathologically enlarged lymph nodes. IMPRESSION: 1. Subcutaneous collection and edema in the right gluteal fat. Correlate clinically for contusion or infection. 2. Moderate amounts of formed stool and accentuated diverticulosis. No inflammatory process or obstruction. ACT 112: Negative or not required by law. Electronically signed by Amanda Scott 07-22-2024 6:58 PM
--- NOTE | 2024-07-22 19:26 | Emergency Department Note ---
History of Present Illness General Chief complaint: Urinary Symptoms Stated complaint: UTI Time Seen by Provider: 07/22/24 16:02 History of Present Illness Provider complaint: Weakness Onset (ago): day(s) 4 84-year-old female presents emergency department for weakness. Patient reports that she fell on Wednesday and since then has been still having weakness. She reports feeling lightheaded like she is going to pass out. Patient reporting headache. She reports diarrhea. No melena hematochezia. No hematuria or dysuria. No fever. No chest pain difficulty breathing. Patient's daughter at bedside reports that the patient was supposed to be on antibiotics for UTI but they were sent to the wrong pharmacy. Home Medications Medication Instructions Recorded Confirmed Type multivitamin 1 tab PO DAILY 08/02/19 07/22/24 History atorvastatin 10 mg tablet 10 mg PO QAM 08/23/19 07/22/24 History cyanocobalamin (vitamin B-12) 1,000 mcg PO QAM 08/23/19 07/22/24 History 1,000 mcg tablet (Vitamin B-12) famotidine 10 mg tablet (Pepcid AC) 10 mg PO QAM 09/07/19 07/22/24 History amlodipine 10 mg-benazepril 20 mg 1 cap PO QAM 01/03/20 07/22/24 History capsule gabapentin 100 mg capsule 400 mg PO TID 06/23/21 07/22/24 History ibuprofen 600 mg tablet 600 mg PO TID 12/20/21 07/22/24 History meclizine 25 mg tablet 25 mg PO TID PRN dizziness #12 tabs 12/20/21 07/22/24 Rx metformin 500 mg tablet,extended 500 mg PO BID 03/23/22 07/22/24 History release 24 hr fluoxetine 10 mg tablet 10 mg PO DAILY #30 tabs 03/24/22 07/22/24 Rx erythromycin 5 mg/gram (0.5 %) eye 0.5 inch ophthalmic (eye) QID 7 05/07/24 07/22/24 Rx ointment days #3.5 grams Allergies Allergy/AdvReac Type Severity Reaction Status Date / Time pollen extracts Allergy Unknown "SPRING Verified 05/07/24 11:58 ALLERGIES" - ITCHY EYES, RUNNY NOSE No Known Drug Allergies Allergy Verified 05/07/24 11:58 Past Med/Surg History Problem List (Updated 07/22/24 @ 20:01 by Buster Wall MD) Fall (Acute) Acute dehydration (Acute) Hypomagnesemia (Acute) Hypokalemia (Acute) Dysuria (Acute) Injury of left hip (Acute) Injury of left knee (Acute) Fall (Acute) Closed head injury (Acute) Left lumbar radiculopathy Hyponatremia (Acute) Vaso vagal episode Medical History Compression fracture History of dehydration JUL 2019 & AUG 2019 - EVAL [facility] ED FOR WEAKNESS, VOMITING, DEHYDRATION, LOW POTASSIUM AND MAGNESIUM LEVELS ( HX SUPPLEMENT FOR AND COMPLETED) - F/U DR MORRIS UPCOMING OCTOBER 30 2019 SOB (shortness of breath) on exertion WITH STAIRS Moist mucous membranes of ear, nose, and throat CHRONIC MUCOUS OF THE THROAT, RASPY VOICE Eye infection R EYE, DX AUG 2019 - PRESCRIBED DOXYCYCLINE PT DID NOT TAKE - EYE CURRENTLY INFLAMMED Urinary incontinence Acid reflux Neck problem CHRONIC STIFF NECK, CRACKS - LIMITED ROM SIDE TO SIDE Scoliosis Arthritis BACK Hypomagnesemia HTN (hypertension) Diabetes Migraines HX OF Surgical History History of endoscopy History of colonoscopy with polypectomy (11/2017) Dr. Estrada History of right knee surgery History of cholecystectomy History of hysterectomy History of tonsillectomy Family History Other Family history of colon cancer Family history of diabetes mellitus in mother No pertinent family history Denies family history of Crohn's disease Ulcerative colitis Social History Smoking Status: Never smoker Second Hand Exposure: No; Do You Dip or Chew Tobacco: No; Hx Alcohol Use: No Hx Substance Use: No Preferred Language: Romansh Er Physician Required: No Beliefs That Will Affect Care: None Current Living Situation: Spouse Feels Safe at Home: Yes Assistive Devices: Cane, Glasses and Hearing Aid - Bilateral Physical Exam Vital Signs Vital Signs - 24 hr 07/22/24 15:56 07/22/24 16:10 07/22/24 16:10 Temperature 36.5 C Temperature Source Skin Pulse Rate 66 66 Pulse Rate [Apical] 62 Pulse Rhythm Regular Pulse Rhythm [Apical] Regular Pulse Strength [Apical] Normal Respiratory Rate 19 18 18 Respiratory Effort / Characteristics Non-Labored Spontaneous Non-Labored Spontaneous Respiratory Depth Normal Normal Respiratory Pattern Regular Regular Blood Pressure 166/79 H Blood Pressure [Right Arm] 158/84 H Blood Pressure Mean 108 Blood Pressure Mean [Right Arm] 108 Blood Pressure Position [Right Arm] Lying Pulse Oximetry 99 96 96 Oxygen Delivery Method Room Air Room Air Room Air Sepsis Recent Fever Within 48 Hours No Sepsis New/Unexplained Change in Mental Status N/A Sepsis Action Taken by Nursing No Action Required 07/22/24 17:14 07/22/24 18:29 Temperature Temperature Source Pulse Rate Pulse Rate [Apical] 63 62 Pulse Rhythm Pulse Rhythm [Apical] Regular Regular Pulse Strength [Apical] Respiratory Rate 19 20 Respiratory Effort / Characteristics Non-Labored Spontaneous Non-Labored Spontaneous Respiratory Depth Normal Normal Respiratory Pattern Regular Regular Blood Pressure Blood Pressure [Right Arm] 166/81 H 177/101 H Blood Pressure Mean Blood Pressure Mean [Right Arm] 109 126 Blood Pressure Position [Right Arm] Lying Lying Pulse Oximetry 99 95 Oxygen Delivery Method Room Air Room Air Sepsis Recent Fever Within 48 Hours Sepsis New/Unexplained Change in Mental Status Sepsis Action Taken by Nursing Physical Exam GENERAL: oriented to person, place, and time. appears well-developed and well- nourished. HENT: Exam performed. - Head: Normocephalic and atraumatic. EYES: Conjunctivae and EOM are normal. Right eye exhibits no discharge. Left eye exhibits no discharge. No scleral icterus. NECK: Normal range of motion. Neck supple. No JVD present. CV: Normal rate, regular rhythm, normal heart sounds and intact distal pulses. There is no peripheral edema. Palpable radial pulses bue. PULM/CHEST: Effort normal and breath sounds normal. No respiratory distress. No stridor. no wheezes. no rales. ABD: The abdomen is soft. There is no tenderness. NEURO: Motor and sensation grossly intact. SKIN: Skin is warm and dry. He is not diaphoretic. PSYCH: normal mood and affect. Behavior is normal. Judgment and thought content normal. Course Course 160: The patient was evaluated in room C5. A complete history and physical exam was performed Cardiac monitoring: An order was placed for continuous cardiac monitoring. The monitor shows a rate of 60 with sinus rhythm interpreted by me 1800: Vital signs stable. Patient's magnesium 1.2 potassium 3.1. Labs are otherwise normal. Patient was unable to give a stool sample so far. Imaging shows no traumatic injury. Magnesium will replete in the emergency department followed by potassium repletion. Patient will be admitted to the [facility] team. Discussed with Roberta RODRIGUEZ for [facility]. Administered Medications Discontinued Medications Magnesium Sulfate/Dextrose (Magnesium Sulfate / D5w) 1 gm in 100 mls @ 100 mls/hr IV Q1H KARYN Stop: 07/22/24 19:33 Last Admin: 07/22/24 19:16 Dose: 100 mls/hr Documented By: Infusion: 07/22/24 18:50 Dose: Infused Documented By: Admin: 07/22/24 17:50 Dose: 100 mls/hr Documented By: HALLIE Medical Decision Making Medical Records Attestation: I reviewed the patient's medical records. External medical records reviewed. Patient was seen in the emergency department on July 18, 4 days ago. At that time she had fallen. Imaging showed no acute traumatic injury. Patient's magnesium and potassium were low, 1.2 and 2.9 respectively. Her electrolytes were repleted and the patient was discharged home. The patient's urinalysis was negative and urine culture from that visit is also negative. Laboratory Data Attestation: I reviewed the patient's lab results. 07/22/24 16:11 07/22/24 16:11 Lab Results 07/22/24 07/22/24 07/22/24 Range/Units 16:11 16:15 16:27 WBC 5.91 (4.8-10.8) K/ul RBC 3.83 L (4.20-5.40) M/uL Hgb 11.6 L (12.0-16.0) g/dl Hct 33.8 L (37.0-47.0) % MCV 88.3 (80.0-100.0) fL MCH 30.3 (25.0-34.0) pg MCHC 34.3 (32.0-36.0) g/dL RDW Std Deviation 39.1 (36.4-46.3) fL RDW Coeff of Niru 12.1 (11.5-14.5) % Plt Count 211 (130-400) K/uL MPV 9.7 (9.4-12.4) fL Immature Gran % (Auto) 0.2 % Neut % (Auto) 66.1 % Lymph % (Auto) 24.9 % Cache % (Auto) 6.6 % Eos % (Auto) 1.7 % Baso % (Auto) 0.5 % Neut # (Auto) 3.91 (1.40-6.50) K/uL Lymph # (Auto) 1.47 (1.20-3.40) K/uL Cache # (Auto) 0.39 (0.11-0.59) K/uL Eos # (Auto) 0.10 (0.00-0.50) K/uL Baso # (Auto) 0.03 (0.00-0.20) K/uL Immature Gran # (Auto) 0.01 (0.01-0.20) K/uL PT 11.5 (9.0-12.0) Seconds INR 1.1 (0.9-1.1) APTT 27 (21-31) Seconds PTT Ratio 1.0 VBG pH 7.42 H (7.36-7.41) VBG pCO2 49 (38-50) mmHg VBG pO2 35 mmHg VBG HCO3 32 mmol/L VBG O2 Saturation 62.9 % VBG Base Excess 6.1 mEq/L Sodium 138 (136-145) mmol/L Potassium 3.1 L (3.5-5.1) mmol/L Chloride 97 L (98-107) mmol/L Carbon Dioxide 32 (21-32) mmol/L Anion Gap 9 (3-11) BUN 26 H (6-23) mg/dl Creatinine 0.92 (0.6-1.2) mg/dl Est Cr Clr Drug Dosing 40.7 ml/min eGFR 62.17 BUN/Creatinine Ratio 28.3 H (10-20) Glucose 135 H (70-99(Fasting)) mg/dl Lactate 1.6 (0.4-2.0) mmol/L Calcium 10.0 (8.6-10.3) mg/dl Magnesium 1.2 L (1.7-2.4) mg/dl Total Bilirubin 0.9 (0.2-1.0) mg/dl Direct Bilirubin 0.2 (0-0.2) mg/dl AST 16 (13-39) U/L ALT 11 (7-52) U/L Alkaline Phosphatase 33 L (34-104) U/L Troponin I High Sens 7.1 (0-14) pg/ml Total Protein 6.7 (6.0-8.3) gm/dl Albumin 4.0 (3.4-5.0) gm/dl Procalcitonin < 0.02 (0-0.5) ng/ml Urine Color Urine Appearance (Clear) Urine pH (4.5-7.5) Ur Specific [place] (1.000-1.030) Urine Protein (Negative) Urine Glucose (UA) (Negative) Urine Ketones (Negative) Urine Blood (Negative) Urine Nitrite (Negative) Urine Bilirubin (Negative) Urine Urobilinogen (Negative) Ur Leukocyte Esterase (Negative) Urine WBC (Auto) (0-5) /hpf Urine RBC (Auto) (0-2) /hpf U Hyaline Cast (Auto) (0-2) /lpf U Epithel Cells (Auto) (0-2) /hpf Urine Bacteria (Auto) (None Seen) Adenovirus (PCR) Not Detected (NotDetected) B. pertussis DNA (PCR) Not Detected (NotDetected) B.parapertussis DNA PCR Not Detected (NotDetected) C. pneumoniae DNA (PCR) Not Detected (NotDetected) Coronavirus OC43 (PCR) Not Detected (NotDetected) Coronavirus HKU1 (PCR) Not Detected (NotDetected) Coronavirus 229E (PCR) Not Detected (NotDetected) SARS-CoV-2 (PCR) Not Detected (NotDetected) Coronavirus NL63 (PCR) Not Detected (NotDetected) Human Metapneumovir PCR Not Detected (NotDetected) Influenza Type A (PCR) Not Detected (NotDetected) Influenza Type B (PCR) Not Detected (NotDetected) M. pneumoniae (PCR) Not Detected (NotDetected) Parainfluenza 1 (PCR) Not Detected (NotDetected) Parainfluenza 2 (PCR) Not Detected (NotDetected) Parainfluenza 3 (PCR) Not Detected (NotDetected) Parainfluenza 4 (PCR) Not Detected (NotDetected) RSV (PCR) Not Detected (NotDetected) Entero/Rhino (PCR) Not Detected (NotDetected) 07/22/24 Range/Units 17:15 WBC (4.8-10.8) K/ul RBC (4.20-5.40) M/uL Hgb (12.0-16.0) g/dl Hct (37.0-47.0) % MCV (80.0-100.0) fL MCH (25.0-34.0) pg MCHC (32.0-36.0) g/dL RDW Std Deviation (36.4-46.3) fL RDW Coeff of Niru (11.5-14.5) % Plt Count (130-400) K/uL MPV (9.4-12.4) fL Immature Gran % (Auto) % Neut % (Auto) % Lymph % (Auto) % Cache % (Auto) % Eos % (Auto) % Baso % (Auto) % Neut # (Auto) (1.40-6.50) K/uL Lymph # (Auto) (1.20-3.40) K/uL Cache # (Auto) (0.11-0.59) K/uL Eos # (Auto) (0.00-0.50) K/uL Baso # (Auto) (0.00-0.20) K/uL Immature Gran # (Auto) (0.01-0.20) K/uL PT (9.0-12.0) Seconds INR (0.9-1.1) APTT (21-31) Seconds PTT Ratio VBG pH (7.36-7.41) VBG pCO2 (38-50) mmHg VBG pO2 mmHg VBG HCO3 mmol/L VBG O2 Saturation % VBG Base Excess mEq/L Sodium (136-145) mmol/L Potassium (3.5-5.1) mmol/L Chloride (98-107) mmol/L Carbon Dioxide (21-32) mmol/L Anion Gap (3-11) BUN (6-23) mg/dl Creatinine (0.6-1.2) mg/dl Est Cr Clr Drug Dosing ml/min eGFR BUN/Creatinine Ratio (10-20) Glucose (70-99(Fasting)) mg/dl Lactate (0.4-2.0) mmol/L Calcium (8.6-10.3) mg/dl Magnesium (1.7-2.4) mg/dl Total Bilirubin (0.2-1.0) mg/dl Direct Bilirubin (0-0.2) mg/dl AST (13-39) U/L ALT (7-52) U/L Alkaline Phosphatase (34-104) U/L Troponin I High Sens (0-14) pg/ml Total Protein (6.0-8.3) gm/dl Albumin (3.4-5.0) gm/dl Procalcitonin (0-0.5) ng/ml Urine Color Yellow Urine Appearance Clear (Clear) Urine pH 7.0 (4.5-7.5) Ur Specific [place] 1.010 (1.000-1.030) Urine Protein Trace H (Negative) Urine Glucose (UA) Negative (Negative) Urine Ketones Negative (Negative) Urine Blood Negative (Negative) Urine Nitrite Negative (Negative) Urine Bilirubin Negative (Negative) Urine Urobilinogen Negative (Negative) Ur Leukocyte Esterase Negative (Negative) Urine WBC (Auto) 0-5 (0-5) /hpf Urine RBC (Auto) 0-2 (0-2) /hpf U Hyaline Cast (Auto) 0-2 (0-2) /lpf U Epithel Cells (Auto) 0-2 (0-2) /hpf Urine Bacteria (Auto) None Seen (None Seen) Adenovirus (PCR) (NotDetected) B. pertussis DNA (PCR) (NotDetected) B.parapertussis DNA PCR (NotDetected) C. pneumoniae DNA (PCR) (NotDetected) Coronavirus OC43 (PCR) (NotDetected) Coronavirus HKU1 (PCR) (NotDetected) Coronavirus 229E (PCR) (NotDetected) SARS-CoV-2 (PCR) (NotDetected) Coronavirus NL63 (PCR) (NotDetected) Human Metapneumovir PCR (NotDetected) Influenza Type A (PCR) (NotDetected) Influenza Type B (PCR) (NotDetected) M. pneumoniae (PCR) (NotDetected) Parainfluenza 1 (PCR) (NotDetected) Parainfluenza 2 (PCR) (NotDetected) Parainfluenza 3 (PCR) (NotDetected) Parainfluenza 4 (PCR) (NotDetected) RSV (PCR) (NotDetected) Entero/Rhino (PCR) (NotDetected) Imaging Data Attestation: I personally reviewed and interpreted this imaging study as follows: My Impression: Chest x-ray negative. Airway clear. No pneumothorax. No consolidation. No cardiomegaly or cephalization.. No free air under the diaphragm. No fractures of the skeletal structures. Radiologist's Impression: Chest X-Ray 07/22/24 16:10 EXAM: Radiograph of the Chest 1 View INDICATION: Sepsis. TECHNIQUE: Frontal view of the chest. COMPARISON: 07/18/2024 FINDINGS: Lungs and pleural spaces: No consolidation or pulmonary edema. No pleural effusion or pneumothorax. Heart: Shape and configuration within normal limits allowing for technique. Mediastinum: Normal contour. Bones/joints: Degenerative changes noted throughout the spine. No acute osseous abnormality seen. Calcific tendinitis right shoulder. Soft tissues: No abnormality noted. No radiopaque foreign body noted. Vasculature: Stable ectatic aorta. Upper abdomen: No abnormality noted. IMPRESSION: No acute cardiopulmonary disease. ACT 112: Negative or not required by law. Electronically signed by Amanda Scott 07-22-2024 4:[address] 07/22/24 16:10 EXAM: CT Head Without Intravenous Contrast INDICATION: Headache. TECHNIQUE: Axial computed tomography images of the head/brain without intravenous contrast. Sagittal and/or coronal reformats are provided. Sagittal and coronal reformatted images were created and reviewed. This CT exam was performed using one or more of the following dose reduction techniques: automated exposure control, adjustment of the mA and/or kV according to patient size, and/or use of iterative reconstruction technique. COMPARISON: 07/08/2024 FINDINGS: Limitations: None. Brain and extra-axial spaces: There is age appropriate cortical atrophy and chronic ischemic periventricular white matter hypodensity. No acute infarct, hemorrhage or mass noted. 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 Bones/joints: No acute changes. Soft tissues: No significant abnormality noted. Vasculature: No acute abnormality noted. Sinuses: No layering fluid in the visualized portions of the paranasal sinuses. Mastoid air cells: No mastoid effusion. Orbits: No significant abnormality noted. IMPRESSION: Cerebral atrophy. No acute changes. ACT 112: Negative or not required by law. Electronically signed by Amanda Scott 07-22-2024 5:15 PM Abdomen/Pelvis CT 07/22/24 18:15 EXAM: CT Abdomen and Pelvis Without Intravenous Contrast INDICATION: Diarrhea. TECHNIQUE: Axial computed tomography images of the abdomen and pelvis without intravenous contrast. Sagittal and coronal reformatted images were created and reviewed. This CT exam was performed using one or more of the following dose reduction techniques: automated exposure control, adjustment of the mA and/or kV according to patient size, and/or use of iterative reconstruction technique. COMPARISON: No relevant prior studies available. FINDINGS: Limitations: None. Lung bases: No abnormality noted. Pleural space: No visualized pleural effusion or pneumothorax. Heart: No abnormality noted. Mediastinum: No abnormality noted. ABDOMEN: Liver: Lack of intravenous contrast limits detection of some masses. No abnormality noted. Gallbladder and bile ducts: Cholecystectomy. No ductal dilation or stone noted. Pancreas: No pancreatic mass, calcification, inflammation or ductal dilation noted. Spleen: No significant abnormality noted. Adrenals: No significant abnormality noted. Kidneys and ureters: Simple right renal cysts. No follow-up of these simple cysts is necessary. There is mild cortical scarring of both kidneys. No stones or hydronephrosis. Stomach and bowel: Moderate amounts of stool throughout the colon with diverticulosis. No diverticulitis. No obstruction. PELVIS: Appendix: No findings to suggest acute appendicitis. Bladder: Appears normal for the degree of filling. No stones or inflammation. No large mass. Masses may not be detected in the absence of opacification. Reproductive: No abnormalities noted. ABDOMEN and PELVIS: Intraperitoneal space: No free air. No significant fluid collection. Bones/joints: No acute changes. Soft tissues: In the right gluteal fat is a soft tissue collection measuring 3.3 x 3.1 x 2.1 cm posterior to the proximal shaft of the femur. There is mild surrounding edema. Vasculature: No abdominal aortic aneurysm. Lymph nodes: No pathologically enlarged lymph nodes. IMPRESSION: 1. Subcutaneous collection and edema in the right gluteal fat. Correlate clinically for contusion or infection. 2. Moderate amounts of formed stool and accentuated diverticulosis. No inflammatory process or obstruction. ACT 112: Negative or not required by law. Electronically signed by Amanda Scott 07-22-2024 6:58 PM ECG Data Attestation: I personally reviewed and interpreted this ECG as follows: Rate (beats per minute): 80 Rhythm: + normal sinus ECG Intervals/blocks: + Normal QRS, + Normal GA and + Normal QT-c ECG ST segments: + Normal ST segments [facility] Narrative 1602: The patient was evaluated in room C5. A complete history and physical exam was performed Cardiac monitoring: An order was placed for continuous cardiac monitoring. The monitor shows a rate of 60 with sinus rhythm interpreted by me 1800: Vital signs stable. Patient's magnesium 1.2 potassium 3.1. Labs are otherwise normal. Patient was unable to give a stool sample so far. Imaging shows no traumatic injury. Magnesium will replete in the emergency department followed by potassium repletion. Patient will be admitted to the [facility] hospitalist team. Discussed with Roberta RODRIGUEZ for [facility]. Impression & Plan Hypokalemia, Hypomagnesemia Discharge Plan Visit Data Chief Complaint: Urinary Symptoms Stated Complaint: UTI ED Provider: Buster Wall Discharge Problem: Hypokalemia, Hypomagnesemia Patient Disposition: Admitted As Inpatient Forms Stand Alone Forms: My [facility] Prescriptions Prescriptions: No Action fluoxetine 10 mg tablet 10 mg PO DAILY Qty: 30 2RF gabapentin 100 mg capsule 400 mg PO TID famotidine [Pepcid AC] 10 mg tablet 10 mg PO QAM erythromycin 5 mg/gram (0.5 %) ointment 0.5 inch ophthalmic (eye) QID 7 Days Qty: 3.5 0RF metformin 500 mg tablet extended release 24 hr 500 mg PO BID multivitamin Tablet 1 tab PO DAILY amlodipine-benazepril 10-20 mg capsule 1 cap PO QAM atorvastatin 10 mg tablet 10 mg PO QAM cyanocobalamin (vitamin B-12) [Vitamin B-12] 1,000 mcg Tablet 1,000 mcg PO QAM ibuprofen 600 mg tablet 600 mg PO TID meclizine 25 mg tablet 25 mg PO TID PRN (Reason: dizziness) Qty: 12 0RF Referrals Referrals: Billy Nicholson MD [Primary Care Provider] -
[2024-07-22] MEDS: POTASSIUM CHLORIDE 10 MEQ TABCR PO ONE (20:19)
[2024-07-22] MEDS ORDERED: ONDANSETRON INJ 2 MG/ML 2 ML VIAL IV PRN (21:13)
[2024-07-22] MEDS: ERYTHROMYCIN OP OINT 5 MG/GM 3.5 GM TUBE OP SCH (22:03)
[2024-07-22] MEDS: GABAPENTIN 400 MG CAP PO SCH (22:03)
[2024-07-22] MEDS: ENOXAPARIN INJ 40 MG/0.4 ML SYR SQ SCH (22:03)
--- NOTE | 2024-07-23 06:42 | Electrocardiogram Report ---
Test Reason : Blood Pressure : */* mmHG Vent. Rate : 62 BPM Atrial Rate : 62 BPM P-R Int : 202 ms QRS Dur : 124 ms QT Int : 456 ms P-R-T Axes : 49 -59 16 degrees QTcB Int : 462 ms Normal sinus rhythm Right bundle branch block Left anterior fascicular block Bifascicular block Minimal voltage criteria for LVH, may be normal variant ( R in aVL ) Septal infarct (cited on or before 20-Dec-2021) Abnormal ECG When compared with ECG of 18-Jul-2024 11:25, Nonspecific T wave abnormality, improved in Anterior leads Nonspecific T wave abnormality now evident in Lateral leads Confirmed by Vladislav Dorado ([id number]) on 07/23/2024 6:42:12 AM Referred By: REFERRED SELF Confirmed By: Vladislav Dorado
[2024-07-23 07:30] LABS: Hematocrit (blood only) 30.6 % (37.0-47.0); Hemoglobin 10.5 g/dl (12.0-16.0); Mean Corpuscular Hemoglobin 30.4 pg (25.0-34.0); Mean Corpuscular Hgb Conc 34.3 g/dL (32.0-36.0); Mean Corpuscular Volume 88.7 fL (80.0-100.0); Mean Platelet Volume 9.8 fL (9.4-12.4); Platelet Count 181 K/uL (130-400); RDW Coefficient of Variation 12.2 % (11.5-14.5); RDW Standard Deviation 39.9 fL (36.4-46.3); Red Blood Count 3.45 M/uL (4.20-5.40); White Blood Count 4.53 K/ul (4.8-10.8)
[2024-07-23 07:49] LABS: BUN Creatinine Ratio 22.8 (10-20); Calcium 9.2 mg/dl (8.6-10.3); Creatinine Clr Calc Pharmacy 44.1 ml/min; Magnesium 1.6 mg/dl (1.7-2.4); Potassium 3.5 mmol/L (3.5-5.1)
[2024-07-23] MEDS ORDERED: GLUCOSE 40% GEL 15 GM TUBE PO PRN (08:21)
[2024-07-23] MEDS ORDERED: DEXTROSE 50% 50 ML SYRINGE IV PRN (08:21)
[2024-07-23] MEDS ORDERED: CARBOHYDRATES FOR HYPOGLYCEMIA PO PRN (08:21)
[2024-07-23] MEDS ORDERED: GLUCOSE 10 TAB/TUBE PO PRN (08:21)
[2024-07-23] MEDS ORDERED: GLUCAGON FOR INJ 1 MG VIAL SQ PRN (08:21)
[2024-07-23] MEDS ORDERED: metFORMIN HCL ER 500 MG TABCR PO SCH (09:00)
[2024-07-23] MEDS: amLODIPine BESYLATE 5 MG TAB PO SCH (09:07)
[2024-07-23] MEDS: ENALAPRIL MALEATE 10 MG TAB PO SCH (09:07)
[2024-07-23] MEDS: FAMOTIDINE 10 MG TABLET PO SCH (09:07)
[2024-07-23] MEDS: FLUoxetine HCL 10 MG CAP PO SCH (09:07)
[2024-07-23] MEDS: ATORVASTATIN 10 MG TAB PO SCH (09:07)
[2024-07-23] MEDS: MULTIVITAMIN TAB PO SCH (09:07)
[2024-07-23 11:20] LABS: Adenovirus F 40/41 PCR Not Detected (NotDetected); Astrovirus PCR Not Detected (NotDetected); Campylobacter PCR Not Detected (NotDetected); Cryptosporidium PCR Not Detected (NotDetected); Cyclospora cayetanensis PCR Not Detected (NotDetected); Entamoeba histolytica PCR Not Detected (NotDetected); Enteroaggregative E.coli(EAEC) Not Detected (NotDetected); Enteropathogenic E.coli (EPEC) Not Detected (NotDetected); Enterotoxigenic E.coli (ETEC) Not Detected (NotDetected); Giardia lamblia PCR Not Detected (NotDetected); Norovirus GI/GII PCR Not Detected (NotDetected); Plesiomonas shigelloides PCR Not Detected (NotDetected); Rotavirus A PCR Not Detected (NotDetected); Salmonella PCR Not Detected (NotDetected); Sapovirus PCR Not Detected (NotDetected); Shiga-like Toxin E.coli (STEC) Not Detected (NotDetected); Shigella/Enteroinvasive E.coli Not Detected (NotDetected); Vibrio cholerae PCR Not Detected (NotDetected); Vibrio species PCR Not Detected (NotDetected); Yersinia enterocolitica PCR Not Detected (NotDetected)
[2024-07-23] MEDS: INSULIN ASPART PER UNIT CHARGE SC SCH (12:19)
[2024-07-23 17:40] LABS: Hematocrit (blood only) 31.7 % (37.0-47.0)
[2024-07-23] MEDS: GABAPENTIN 400 MG CAP PO SCH (20:57)
--- NOTE | 2024-07-23 21:40 | Hospitalist Progress Note ---
Date of Service July 23, 2024 Assessment & Plan (1) Diarrhea: Plan: *Diverticulosis of colon This is an 84-year-old female with past medical history of hypertension, atorvastatin, B12 deficiency, neuropathy, type 2 diabetes who presented to the emergency department on 07/22/2024 with a chief complaint of progressive weakness. Stool Biofire and C diff negative. Duiarrhea improved. May condsider holding metformin at discharge vs resuming lower dose. CTAP diverticlosis noted on imaging. CBC without leukocytosis, mild anemia of 11.6. Procal negative Urinalysis negative. given patient's diarrhea, hold off on abx therapy unless symptomatic for a UTI. TSH WNL 07/18 Blood cultures pending PT/OT consults for ongoing weakness. (2) Hypokalemia: Plan: K of 3.1 on admission improved from 2.9 on 07/18 when she was in the ED s/p 40meq K in ED repleted AM BMP (3) Hypomagnesemia: Plan: Mag of 1.2 on admission, was also 1.2 on 07/18 s/p 2g IV mag in ED repleted AM Magnesium (4) Diabetes: Plan: last hgb a1c 07/13 6.6% on insulin SS On gabapentin for neuropathy, continue Plan Chronic conditions: HTN: continue amlodipine-benazepril HLD: statin GERD: pepcid Mental health: fluoxetine Diet: carb consistent Code status: DNR/DNI DVT prophylaxis: Lovenox Disposition: admit to medical Admission and Anticipated Discharge Date Admission Date: July 22, 2024 Subjective Patient reports no new symptoms. Physical Exam Physical Exam: Constitutional: WD/WN, vitals as above Eyes: PERRL, conjunctivae normal, anicteric sclerae Respiratory: normal respiratory effort, lungs clear to auscultation Cardiovascular: RRR, no murmur, no edema Gastrointestinal (Abdomen): normal bowel sounds, soft, nontender, no hepatosplenomegaly Psychiatric: A+Ox3, euthymic affect Results & Data Results & Data Vital Signs (Past 12 Hours) Vital Signs Temp Pulse Resp BP Pulse Ox O2 Del Method 07/23/24 19:32 36.8 C 69 18 110/65 93 Room Air 07/23/24 15:43 36.6 C 60 18 113/67 96 Room Air PG Care Time/CCT Total # of Minutes Spent Total Time Spent with Patient: Total time spent is greater than 50% in coordination of care (as documented) at patient's floor/unit and/or counseling patient: Coding Level of Care Code 23142 SUB INP/OBS CARE 2/35MIN Diagnoses Diarrhea R19.7 Hypokalemia E87.6 Hypomagnesemia E83.42 Diabetes E11.9 Diabetes mellitus type: type 2 (4) Diabetes Diabetes mellitus type: type 2
[2024-07-24 08:15] LABS: Hematocrit (blood only) 32.8 % (37.0-47.0); Hemoglobin 11.1 g/dl (12.0-16.0); Mean Corpuscular Hgb Conc 33.8 g/dL (32.0-36.0); Mean Corpuscular Volume 88.6 fL (80.0-100.0); Mean Platelet Volume 9.8 fL (9.4-12.4); Platelet Count 169 K/uL (130-400); RDW Coefficient of Variation 12.2 % (11.5-14.5); RDW Standard Deviation 39.5 fL (36.4-46.3); White Blood Count 7.79 K/ul (4.8-10.8)
[2024-07-24 08:29] LABS: BUN Creatinine Ratio 22.4 (10-20); C Reactive Protein 0.52 mg/dl (0-0.5); Calcium 9.4 mg/dl (8.6-10.3); Creatinine Clr Calc Pharmacy 47.8 ml/min; Potassium 3.7 mmol/L (3.5-5.1)
[2024-07-24] MEDS: ACETAMINOPHEN 325 MG TAB PO PRN (10:47)
[2024-07-24] MEDS: KETOROLAC TROMETHAMINE 15 MG/ML VIAL IV PRN (10:48)
--- NOTE | 2024-07-24 11:12 | Hospitalist Progress Note ---
Date of Service July 24, 2024 Assessment & Plan (1) Diarrhea: Plan: *Diverticulosis of colon This is an 84-year-old female with past medical history of hypertension, atorvastatin, B12 deficiency, neuropathy, type 2 diabetes who presented to the emergency department on 07/22/2024 with a chief complaint of progressive weakness. Stool Biofire and C diff negative. Diarrhea has resolved. CTAP diverticlosis noted on imaging. CBC without leukocytosis, mild anemia of 11.6. Procal negative (2) Osteoarthritis: Plan: Patient complains of knee pains on ambulation X ray on 07/02 showed evidence of osteoarthritis will add pain control PT/OT (3) Hypokalemia: Plan: Replaced (4) Hypomagnesemia: Plan: Replaced (5) Diabetes: Plan: last hgb a1c 07/13 6.6% on insulin SS On gabapentin for neuropathy, continue Plan Chronic conditions: HTN: continue amlodipine-benazepril HLD: statin GERD: pepcid Mental health: fluoxetine Diet: carb consistent Code status: DNR/DNI DVT prophylaxis: Lovenox Disposition: awaiting eval by PT/OT Admission and Anticipated Discharge Date Admission Date: July 22, 2024 Subjective Patient reports no new symptoms apart from knee pains on ambulation Review of Systems Review of Systems: All systems reviewed are negative, apart from the ones contained in the history. Physical Exam Physical Exam: The patient is awake, alert and oriented 3, well developed and well nourished, normocephalic and atraumatic, lying in bed and in no acute distress. HEENT--PERRL, EOMI, mucous membranes and oropharynx mildly dry Neck--supple. No JVD. No bruits. Thyroid normal, trachea midline, no ad enopathy. Heart--normal S1 and S2. No murmurs, rubs or gallops. Lungs--clear bilaterally, no respiratory distress, no accessory muscle use. Abdomen--normal bowel sounds and soft. Extremities--no cyanosis or clubbing. No edema. Dermatologic--normal skin turgor, normal color, no abnormal lymph nodes, no rash. Neurologic--cranial nerves II through XII grossly intact. Rheumatologic--normal range of motion. Psychiatric--normal affect. Results & Data Results & Data Vital Signs (Past 12 Hours) Vital Signs Temp Pulse Resp BP Pulse Ox O2 Del Method 07/24/24 06:18 97.5 F L 64 18 131/73 96 Room Air PG Care Time/CCT Total # of Minutes Spent Total Time Spent with Patient: Total time spent is greater than 50% in coordination of care (as documented) at patient's floor/unit and/or counseling patient: Coding Level of Care Code 83726 SUB INP/OBS CARE 2/35MIN Diagnoses Diarrhea R19.7 Osteoarthritis M19.90 Hypokalemia E87.6 Hypomagnesemia E83.42 Diabetes E11.9 Diabetes mellitus type: type 2 Time Spent (min) 35 (5) Diabetes Diabetes mellitus type: type 2
--- NOTE | 2024-07-24 12:18 | XRay Report ---
XR hip LT 2V w pelvis CLINICAL HISTORY: increased left hip pain. COMPARISON: Pelvis and left hip radiograph July 08, 2024. CT of the abdomen and pelvis July 092023. FINDINGS: Sacroiliac joints and symphysis are intact. There are no fractures within the pelvis or hi ps. There are no osseous lesions. There is no evidence for avascular necrosis of the femoral heads. T here is moderate joint space narrowing and osteophytosis of the hips. IMPRESSION: 1. No fractures within the pelvis or hips. 2. Moderate degenerative changes within the bilateral hips. ACT 112: Negative or not required by law. Electronically signed by: Maurilio Loomis M.D. 07/24/2024 12:16 PM
[2024-07-24 13:28] LABS: A calco-baum cmplx NotReported Not Detected (NotDetected); Bact fragilis Not Reported Not Detected (NotDetected); Blood Culture Id Panel PCR Panel Negative (NotDetected); C auris Not Reported Not Detected (NotDetected); Calbicans Not Reported Not Detected (NotDetected); Candida glabrata Not Reported Not Detected (NotDetected); Candida krusei Not Reported Not Detected (NotDetected); Cneoformans/gatti Not Reported Not Detected (NotDetected); Cparapsilosis Not Reported Not Detected (NotDetected); E cloacae compx Not Reported Not Detected (NotDetected); Efaecalis Not Reported Not Detected (NotDetected); Efaecium Not Reported Not Detected (NotDetected); Enterobacterales Not Reported Not Detected (NotDetected); Escherichia coli Not Reported Not Detected (NotDetected); H influenzae Not Reported Not Detected (NotDetected); K aerogenes Not Reported Not Detected (NotDetected); Koxytoca Not Reported Not Detected (NotDetected); Kpneumoniae grp Not Reported Not Detected (NotDetected); Lmonocyt Not Reported Not Detected (NotDetected); N meningitidis Not Reported Not Detected (NotDetected); P aeruginosa Not Reported Not Detected (NotDetected); Proteus spp Not Reported Not Detected (NotDetected); Salmonella spp Not Reported Not Detected (NotDetected); Staph lugdunensis Not Reported Not Detected (NotDetected); Staph spp. Not Reported Not Detected (NotDetected); Staphaureus Not Reported Not Detected (NotDetected); Staphepi Not Reported Not Detected (NotDetected); Stenmaltophilia Not Reported Not Detected (NotDetected); Strep agal(GrpB) Not Reported Not Detected (NotDetected); Strep pneum Not Reported Not Detected (NotDetected); Strep pyog (GrpA) Not Reported Not Detected (NotDetected); Strep spp Not Reported Not Detected (NotDetected)
[2024-07-24] MEDS: 4.5GM X1 IV STA (15:18)
[2024-07-24] MEDS: PIPERACILLIN/TAZOBACTAM 4.5 GM/100 ML BAG IV SCH (20:35)
[2024-07-25 09:39] LABS: Hematocrit (blood only) 28.8 % (37.0-47.0); Hemoglobin 10.1 g/dl (12.0-16.0); Mean Corpuscular Hemoglobin 30.8 pg (25.0-34.0); Mean Corpuscular Hgb Conc 35.1 g/dL (32.0-36.0); Mean Corpuscular Volume 87.8 fL (80.0-100.0); Mean Platelet Volume 9.8 fL (9.4-12.4); Platelet Count 163 K/uL (130-400); RDW Coefficient of Variation 12.1 % (11.5-14.5); RDW Standard Deviation 39.1 fL (36.4-46.3); Red Blood Count 3.28 M/uL (4.20-5.40); White Blood Count 6.44 K/ul (4.8-10.8)
[2024-07-25 09:57] LABS: BUN Creatinine Ratio 22.3 (10-20); Calcium 8.8 mg/dl (8.6-10.3); Creatinine Clr Calc Pharmacy 33.6 ml/min; Potassium 3.6 mmol/L (3.5-5.1)
--- NOTE | 2024-07-25 10:56 | Hospitalist Progress Note ---
Date of Service July 25, 2024 Assessment & Plan (1) Bacteremia: Plan: Blood culture growing Actinomyces Odontoliticus will obtain facial CT Repeat culture consult ID Continue empiric zosyn (2) Diarrhea: Plan: *Diverticulosis of colon This is an 84-year-old female with past medical history of hypertension, atorvastatin, B12 deficiency, neuropathy, type 2 diabetes who presented to the emergency department on 07/22/2024 with a chief complaint of progressive weakness. Stool Biofire and C diff negative. Diarrhea has resolved. CTAP diverticlosis noted on imaging. Procal negative (3) Osteoarthritis: Plan: Patient complains of knee pains on ambulation X ray on 07/02 showed evidence of osteoarthritis will add pain control PT/OT (4) Hypokalemia: Plan: Replaced (5) Hypomagnesemia: Plan: Replaced (6) Diabetes: Plan: last hgb a1c 07/13 6.6% on insulin SS On gabapentin for neuropathy, continue Plan Chronic conditions: HTN: continue amlodipine-benazepril HLD: statin GERD: pepcid Mental health: fluoxetine Diet: carb consistent Code status: DNR/DNI DVT prophylaxis: Lovenox Disposition: awaiting eval by PT/OT Admission and Anticipated Discharge Date Admission Date: July 22, 2024 Subjective Patient reports no new symptoms , says knee pain is better Review of Systems Review of Systems: All systems reviewed are negative, apart from the ones contained in the history. Physical Exam Physical Exam: The patient is awake, alert and oriented 3, well developed and well nourished, normocephalic and atraumatic, lying in bed and in no acute distress. HEENT--PERRL, EOMI, mucous membranes and oropharynx mildly dry Neck--supple. No JVD. No bruits. Thyroid normal, trachea midline, no adenopathy. Heart--normal S1 and S2. No murmurs, rubs or gallops. Lungs--clear bilaterally, no respiratory distress, no accessory muscle use. Abdomen--normal bowel sounds and soft. Extremities--no cyanosis or clubbing. No edema. Dermatologic--normal skin turgor, normal color, no abnormal lymph nodes, no rash. Neurologic--cranial nerves II through XII grossly intact. Rheumatologic--normal range of motion. Psychiatric--normal affect. Results & Data Results & Data Vital Signs (Past 12 Hours) Vital Signs Temp Pulse Resp BP Pulse Ox O2 Del Method 07/25/24 07:20 Room Air 07/25/24 07:07 97.3 F L 58 L 16 123/75 93 Room Air PG Care Time/CCT Total # of Minutes Spent Total Time Spent with Patient: Total time spent is greater than 50% in coordination of care (as documented) at patient's floor/unit and/or counseling patient: Coding Level of Care Code 71227 SUB INP/OBS CARE 2/35MIN Diagnoses Bacteremia R78.81 Diarrhea R19.7 Osteoarthritis M19.90 Hypokalemia E87.6 Hypomagnesemia E83.42 Diabetes E11.9 Diabetes mellitus type: type 2 Time Spent (min) 35 (6) Diabetes Diabetes mellitus type: type 2
--- NOTE | 2024-07-25 13:09 | CT Scan Report ---
MAXILLOFACIAL CT WITHOUT CONTRAST CLINICAL HISTORY: Actinomyces. COMPARISON STUDY: Head CT July 22, 2024. TECHNIQUE: A maxillofacial CT was performed without IV contrast. Coronal and sagittal reformats were viewed. Automated exposure control was utilized for the study. A dose lowering technique was utiliz ed adhering to the principles of ALARA. FINDINGS: Orbits are unremarkable on unenhanced exam. There is no retrobulbar abnormality. The mastoi d air cells are clear. There is no fluid within the middle ears. The paranasal sinuses are clear. No abnormality within the visualized portions of the upper neck is identified on unenhanced exam. No fac ial inflammation is identified. No fluid collection is identified. No areas of bony erosion are ident ified. Multiple dental amalgams are incidentally noted. IMPRESSION: No acute process within the face on unenhanced exam. No fluid collections. No areas of cathi ny erosion. ACT 112: Negative or not required by law. Electronically signed by: Maurilio Loomis M.D. 07/25/2024 1:07 PM
--- NOTE | 2024-07-25 13:37 | Infectious Disease Consult ---
Date of Consultation July 25, 2024 Assessment & Plan (1) Actinomyces infection: (2) Bacteremia: (3) Osteoarthritis: (4) Diabetes: Plan 84yo F with h/o T2DM, neuropathy, B12 deficiency, HTN who presented on 07/22 from [facility] with progressive weakness. She was seen in the ED on 07/18 with dysuria and discharged on abx, but never filled it since it was sent to the wrong pharmacy. She has not had any urinary symptoms for the past week, no dysuria, urinary frequency or urgency. She reported having ongoing diarrhea x 1 year with 0-3 episodes/day. Here, she has been afebrile, vss. Initial labs with WBC 5.91, Cr 0.92, AST/ALT wnl. CRP 0.52. PCT < 0.02. UA negative. MRSA screen neg. RPP neg. GIPP and C diff neg. CXR neg. CTH neg. CTAP w/o IV with subcu collection and edema in right gluteal fat, moderate amounts of formed stool and accentuated diverticulosis, no inflammatory process. Left hip XR neg for fracture. BCX returned with Actinomyces odontolyticus. She was started on zosyn. ID consulted 07/25. CT face negative. Since no telepresenter was available to see patient, I have been unable to examine her. Please ensure she doesnt have any dental concerns. Nothing noteworthy regarding dentition was noted on CT face. CTAP is already done and noted some subcutaneous collection/edema in the right gluteus. Would make sure this is examined thoroughly to ensure there isnt an underlying infection. CXR is also done, but may miss some findings so I do think we should get a CT chest as well. If no focal source is identified, then treatment of this is unclear. Most cases of isolated Actinomyces bacteremia without other sites of infection, likely require no treatment but do warrant close follow up. # BCx with Actinomyces # Diarrhea improved # h/o T2DM - please obtain CT chest - evaluate dentition for any concerns or sores if present would contact dental or [facility] - please evaluate clinically the right gluteal findings on CT (?hematoma vs abscess) - f/u BCx sent on 07/25 - Faviola stopped zosyn and started Unasyn 3g IV q6h - I will see patient when telepresenter becomes available ID will continue to follow. If questions or concerns, contact via [employer] or Infectious Disease Call Center . Funmi Mtz MD [facility], Division of Infectious Diseases Consultation Information This patient recommendation is based on a telemedicine consult request which was completed asynchronously through chart review and information provided by the primary physician. The patient was not seen or examined today. The evaluation is consultative in nature and all patient care and treatment decisions can either b e accepted or rejected by the patient's primary hospital-based treating physician using their own independent medical judgment for their patient. Senior Shipping Clerk contact information: Please call [facility] [phone]. (Phone Number For Physician Use Only) Time Spent Reviewing Chart: 31+ minutes History of Present Illness Reason for Consultation: bacteremia Attending Physician: Lucas Montano MD History of Present Illness 84yo F with h/o T2DM, neuropathy, B12 deficiency, HTN who presented on 07/22 from [facility] with progressive weakness. She was seen in the ED on 07/18 with dysuria and discharged on abx, but never filled it since it was sent to the wrong pharmacy. She has not had any urinary symptoms for the past week, no dysuria, urinary frequency or urgency. She reported having ongoing diarrhea x 1 year with 0-3 episodes/day. Denied abdominal pain, SOB, chest pain. Notes decreased appetite, nausea. Here, she has been afebrile, vss. Initial labs with WBC 5.91, Cr 0.92, AST/ALT wnl. CRP 0.52. PCT < 0.02. UA negative. MRSA screen neg. RPP neg. GIPP and C diff neg. CXR neg. CTH neg. CTAP w/o IV with subcu collection and edema in right gluteal fat, moderate amounts of formed stool and accentuated diverticulosis, no inflammatory process. Left hip XR neg for fracture. BCX returned with Actinomyces odontolyticus. She was started on zosyn. ID consulted 07/25. Unfortunately, no telepresenter at the time of the consult so I was unable to see patient. Allergies Allergy/AdvReac Type Severity Reaction Status Date / Time pollen extracts Allergy Unknown "SPRING Verified 05/07/24 11:58 ALLERGIES" - ITCHY EYES, RUNNY NOSE No Known Drug Allergies Allergy Verified 05/07/24 11:58 Home Medications Medication Instructions Recorded Confirmed Type multivitamin 1 tab PO DAILY 08/02/19 07/22/24 History atorvastatin 10 mg tablet 10 mg PO QAM 08/23/19 07/22/24 History cyanocobalamin (vitamin B-12) 1,000 mcg PO QAM 08/23/19 07/22/24 History 1,000 mcg tablet (Vitamin B-12) famotidine 10 mg tablet (Pepcid AC) 10 mg PO QAM 09/07/19 07/22/24 History amlodipine 10 mg-benazepril 20 mg 1 cap PO QAM 01/03/20 07/22/24 History capsule gabapentin 100 mg capsule 400 mg PO TID 06/23/21 07/22/24 History ibuprofen 600 mg tablet 600 mg PO TID 12/20/21 07/22/24 History meclizine 25 mg tablet 25 mg PO TID PRN dizziness #12 tabs 12/20/21 07/22/24 Rx metformin 500 mg tablet,extended 500 mg PO BID 03/23/22 07/22/24 History release 24 hr fluoxetine 10 mg tablet 10 mg PO DAILY #30 tabs 03/24/22 07/22/24 Rx erythromycin 5 mg/gram (0.5 %) eye 0.5 inch ophthalmic (eye) QID 7 05/07/24 07/22/24 Rx ointment days #3.5 grams Patient History Medical History Compression fracture History of dehydration JUL 2019 & AUG 2019 - [facility] FOR WEAKNESS, VOMITING, DEHYDRATION, LOW POTASSIUM AND MAGNESIUM LEVELS ( HX SUPPLEMENT FOR AND COMPLETED) - F/U DR Arnie DUNCAN UPCOMING OCTOBER 30 2019 SOB (shortness of breath) on exertion WITH STAIRS Moist mucous membranes of ear, nose, and throat CHRONIC MUCOUS OF THE THROAT, RASPY VOICE Eye infection R EYE, DX AUG 2019 - PRESCRIBED DOXYCYCLINE PT DID NOT TAKE - EYE CURRENTLY INFLAMMED Urinary incontinence Acid reflux Neck problem CHRONIC STIFF NECK, CRACKS - LIMITED ROM SIDE TO SIDE Scoliosis Arthritis BACK Hypomagnesemia HTN (hypertension) Diabetes Migraines HX OF Surgical History History of endoscopy History of colonoscopy with polypectomy (11/2017) Dr. Estrada History of right knee surgery History of cholecystectomy History of hysterectomy History of tonsillectomy Family History Other Family history of colon cancer Family history of diabetes mellitus in mother No pertinent family history Denies family history of Crohn's disease Ulcerative colitis Social History Smoking Status: Never smoker Second Hand Exposure: No; Do You Dip or Chew Tobacco: No; Tobacco Cessation Education Requested by Patient: No Hx Alcohol Use: No Hx Substance Use: No Preferred Language: Citizen Of [place] Communication Ability: Effective Tugboat Engineer Required: No Beliefs That Will Affect Care: None Current Living Situation: Spouse and Personal Care Facility Current Living Situation Comment: Lives at [facility]. Other Information That Helps Us Care for You: No Feels Safe at Home: Yes Safety Concerns: Feels Safe At This Time Assistive Devices: Walker Results & Data Vital Signs (Past 12 Hours) Vital Signs Temp Pulse Resp BP Pulse Ox O2 Del Method 07/25/24 12:56 36.7 C 73 16 124/75 94 Room Air 07/25/24 07:20 Room Air 07/25/24 07:07 36.3 C L 58 L 16 123/75 93 Room Air Laboratory Results Labs reviewed. Diagnostic Findings Imaging reviewed. (4) Diabetes Diabetes mellitus type: type 2
[2024-07-25] MEDS: AMPICILLIN/SULBACTAM SOD 3,000 MG/100 ML BAG IV SCH (14:41)
--- NOTE | 2024-07-25 17:46 | CT Scan Report ---
EXAM: CT Chest Without Intravenous Contrast INDICATION: Bacteremia. TECHNIQUE: Axial computed tomography images of the chest without intravenous contrast. Sagittal and coronal reformatted images were created and reviewed. This CT exam was performed using one or more of the following dose reduction techniques: automated exposure control, adjustment of the mA and/or kV according to patient size, and/or use of iterative reconstruction technique. COMPARISON: 04/07/2016 FINDINGS: Limitations: None. Lungs and pleural spaces: No change 4 mm right upper lobe noncalcified pulmonary nodule. Stable 3 mm oval nodule in the lateral periphery of the right lower lobe series 4 image 92. No further assessment required given stability. Very small layering bilateral pleural effusions present. No pneumothorax. Heart: No abnormality noted. Thyroid: There are few approximate 4 to 5 mm nodules in the thyroid. No further assessment required. Bones/joints: Degenerative changes in the spine and shoulders. There is chronic appearing compression of the L1 vertebra. There is a defined lucency in the left inferior endplate anterior to the pedicle best seen on coronal image 71. There is no periosteal reaction. Soft tissues: No significant abnormality noted. Vasculature: Stable ectatic aorta. No thoracic aortic aneurysm. Lymph nodes: No enlarged lymph nodes. IMPRESSION: 1. There is a subtle lucency in the left aspect of the L1 vertebra without associated periosteal reaction or destructive appearance. This could reflect the consequence of previous trauma given the chronically compressed appearance of the vertebra. Small focus of infection is not excluded. MRI recommended. 2. Very small bilateral pleural effusions present. ACT 112: Negative or not required by law. Electronically signed by Amanda Scott 07-25-2024 5:46 PM
--- NOTE | 2024-07-25 18:15 | XCELERA ---
[id number]___[id number]
[2024-07-26 11:09] LABS: Hematocrit (blood only) 30.7 % (37.0-47.0); Hemoglobin 10.8 g/dl (12.0-16.0); Mean Corpuscular Hemoglobin 30.9 pg (25.0-34.0); Mean Corpuscular Hgb Conc 35.2 g/dL (32.0-36.0); Mean Corpuscular Volume 87.7 fL (80.0-100.0); Mean Platelet Volume 9.8 fL (9.4-12.4); Platelet Count 172 K/uL (130-400); RDW Coefficient of Variation 12.3 % (11.5-14.5); RDW Standard Deviation 39.8 fL (36.4-46.3)
[2024-07-26 11:20] LABS: BUN Creatinine Ratio 23.2 (10-20); Calcium 8.9 mg/dl (8.6-10.3); Potassium 3.6 mmol/L (3.5-5.1)
--- NOTE | 2024-07-26 11:51 | Hospitalist Progress Note ---
Date of Service July 26, 2024 Assessment & Plan (1) Bacteremia: Plan: Blood culture growing Actinomyces Odontoliticus source is uncertain facial CT did not show any acute pathology CT abd showed questionable gluteal lucency CT chest showed a lucency on L1, which will be evaluated further by MRI Repeat culture pending consult ID Continue empiric Unasyn (2) Diarrhea: Plan: *Diverticulosis of colon This is an 84-year-old female with past medical history of hypertension, atorvastatin, B12 deficiency, neuropathy, type 2 diabetes who presented to the emergency department on 07/22/2024 with a chief complaint of progressive weakness. Stool Biofire and C diff negative. Diarrhea has resolved. CTAP diverticlosis noted on imaging. Procal negative (3) Osteoarthritis: Plan: Patient complains of knee pains on ambulation X ray on 07/02 showed evidence of osteoarthritis will add pain control PT/OT (4) Hypokalemia: Plan: Replaced (5) Hypomagnesemia: Plan: Replaced (6) Diabetes: Plan: last hgb a1c 07/13 6.6% on insulin SS On gabapentin for neuropathy, continue Plan Chronic conditions: HTN: continue amlodipine-benazepril HLD: statin GERD: pepcid Mental health: fluoxetine Diet: carb consistent Code status: DNR/DNI DVT prophylaxis: Lovenox Disposition: awaiting eval by PT/OT Admission and Anticipated Discharge Date Admission Date: July 22, 2024 Subjective Patient reports no new symptoms , says knee pain is better Review of Systems Review of Systems: All systems reviewed are negative, apart from the ones contained in the history. Physical Exam Physical Exam: The patient is awake, alert and oriented 3, well developed and well nourished, normocephalic and atraumatic, lying in bed and in no acute distress. HEENT--PERRL, EOMI, mucous membranes and oropharynx mildly dry Neck--supple. No JVD. No bruits. Thyroid normal, trachea midline, no adenopathy. Heart--normal S1 and S2. No murmurs, rubs or gallops. Lungs--clear bilaterally, no respiratory distress, no accessory muscle use. Abdomen--normal bowel sounds and soft. Extremities--no cyanosis or clubbing. No edema. Dermatologic--normal skin turgor, normal color, no abnormal lymph nodes, no rash. Neurologic--cranial nerves II through XII grossly intact. Rheumatologic--normal range of motion. Psychiatric--normal affect. Results & Data Results & Data Vital Signs (Past 12 Hours) Vital Signs Temp Pulse Resp BP Pulse Ox O2 Del Method 07/26/24 07:43 97.7 F 60 18 121/71 95 Room Air 07/26/24 07:15 Room Air PG Care Time/CCT Total # of Minutes Spent Total Time Spent with Patient: Total time spent is greater than 50% in coordination of care (as documented) at patient's floor/unit and/or counseling patient: Coding Level of Care Code 55908 SUB INP/OBS CARE 2/35MIN Diagnoses Bacteremia R78.81 Diarrhea R19.7 Osteoarthritis M19.90 Hypokalemia E87.6 Hypomagnesemia E83.42 Diabetes E11.9 Diabetes mellitus type: type 2 Time Spent (min) 35 (6) Diabetes Diabetes mellitus type: type 2
--- NOTE | 2024-07-26 16:52 | Infectious Disease Progress Nt ---
Date of Service July 26, 2024 Assessment & Plan (1) Actinomyces infection: (2) Bacteremia: (3) Osteoarthritis: (4) Diabetes: Plan 84yo F with h/o T2DM, neuropathy, B12 deficiency, HTN who presented on 07/22 from [facility] with progressive weakness. She was seen in the ED on 07/18 with dysuria and discharged on abx, but never filled it since it was sent to the wrong pharmacy. She has not had any urinary symptoms for the past week, no dysuria, urinary frequency or urgency. She reported having ongoing diarrhea x 1 year with 0-3 episodes/day. Here, she has been afebrile, vss. Initial labs with WBC 5.91, Cr 0.92, AST/ALT wnl. CRP 0.52. PCT < 0.02. UA negative. MRSA screen neg. RPP neg. GIPP and C diff neg. CXR neg. CTH neg. CTAP w/o IV with subcu collection and edema in right gluteal fat, moderate amounts of formed stool and accentuated diverticulosis, no inflammatory process. Left hip XR neg for fracture. BCX returned with Actinomyces odontolyticus. She was started on zosyn. ID consulted 07/25. CT face negative. TTE negative. CT chest with subtle lucency in the left aspect of the L1 vertebra without associated periosteal reaction or destructive appearance; this could reflect the consequence of previous trauma given the chronically compressed appearance of the vertebra; small focus of infection is not excluded. She has a bruise on right buttock from fall at home over the weekend (accounting fo the findings on CTAP). MRI L spine is currently ordered. Awaiting BCx and MRI. Continue on Unasyn for now. # BCx with Actinomyces # Diarrhea improved # h/o T2DM - f/u MRI L spine - f/u BCx sent on 07/25 - continue Unasyn 3g IV q6h ID will continue to follow. If questions or concerns, contact via [facility] or Infectious Disease Call Center . Funmi Mtz MD [facility], Division of Infectious Diseases Admission and Anticipated Discharge Date Admission Date: July 22, 2024 Subjective Subsequent visit was provided via telemedicine using two-way real-time interactive telecommunication between the patient and the telemedicine provider. For the duration of the visit, the provider was performing the assessment from a different facility than the patient. This includesuse of bluetooth stethoscope forauscultationperformed by the telepresenter that the telemedicine provider can hear if described in the physical exam. Hearing Aid Assembly Supervisor contact information: Please call [facility] Call Center [phone]. (Phone Number For Physician Use Only) After establishing a telemedicine visit, patient was: Patient was verified with two unique identifiers, Patient/authorized rep acknowledged consent and understanding and Gave permission to continue telehealth session Time Spent with Patient: Subsequent => 55 min Patient reports doing well. She denies any dental concerns. She saw a dentist 5- 6 weeks ago and they had replaced a crown at that time. She notes arthritis in her neck, chronic lower back pain. Notes a prior injury to her lower back 4-5 year ago while lifting something. No other hardware, joint swelling/pain, rashes, open wounds. Physical Exam Physical Exam: General: Awake, alert, no acute distress HEENT: NC/AT, EOMI, no dental issues Neck: supple, no LAD Lungs: CTA bl, no w/c/r Heart: regular, nl S1/S2, no appreciable murmurs Abdomen: soft, NT/ND Back: no spinal tenderness, no sacral sores Ext: + LE edema Skin: chronic lower extremity skin changes Neuro: moving all extremities Results & Data Vital Signs (Past 12 Hours) Vital Signs Temp Pulse Resp BP Pulse Ox O2 Del Method 07/26/24 07:43 36.5 C 60 18 121/71 95 Room Air 07/26/24 07:15 Room Air Laboratory Results Labs reviewed. Diagnostic Findings Imaging reviewed. (4) Diabetes Diabetes mellitus type: type 2
--- NOTE | 2024-07-27 00:28 | Magnetic Resonance Report ---
Exam(s): MRI L SPINE Without Contrast EXAM: MR Lumbar Spine Without Intravenous Contrast CLINICAL HISTORY: Reason for exam: L1 lesion on CT. TECHNIQUE: Magnetic resonance images of the lumbar spine without intravenous contrast in multiple planes. COMPARISON: CT scan of the abdomen and pelvis from July 22, 2024. FINDINGS: Vertebrae: There are 5 lumbar type vertebral bodies with a mild levoscoliosis and normal lumbar lordosis. There is a mild grade 1 retrolisthesis of L2 on L3 measuring 2 mm, retrolisthesis of L3 on L4 measuring 2 mm and anterolisthesis of L4 on L5 measuring 6 mm. There is a remote fracture deformity of the T12, L3 and L5 segments. The bone marrow signal is heterogeneous with reactive endplate changes. No acute fracture. Spinal cord: The conus is normal size, shape and signal characteristics, terminating at T12-L1. Soft tissues: Advanced atrophy of the iliopsoas, paraspinous and intraspinous musculature. The aorta and IVC flow voids are intact. Right renal cyst. DISCS/SPINAL CANAL/NEURAL FORAMINA: L1-L2: Moderate disc degeneration with annular disc bulge asymmetric to the left causing a mild left subarticular recess stenosis with disc extending to the neural foramina without impingement or significant stenosis. There is minimal facet arthropathy with mild synovitis. L2-L3: Advanced disc degeneration with annular disc bulge asymmetric to the left causing mild subarticular recess stenosis with disc and osteophyte extend to the neural foramina without impingement or significant stenosis. There is mild facet arthropathy with mild synovitis. L3-L4: Advanced disc degeneration with annular disc bulge asymmetric to the left causing a mild subarticular recess stenosis with disc and osteophyte extend to the neural foramina without impingement or significant stenosis. There is mild facet arthropathy with mild synovitis. L4-L5: Moderate disc degeneration with annular disc bulge causing a severe subarticular recess stenosis with impingement of the transiting L5 nerve roots with superimposed spondylolisthesis and facet arthropathy causing a critical spinal canal stenosis with thecal sac area measuring 0. 15 cm. There is disc and osteophyte extend into the neural foramina causing moderately severe bilateral stenosis with impingement of L4 nerve root. There is advanced facet arthropathy with mild synovitis. L5-S1: Moderate disc degeneration with annular disc bulge causing moderate subarticular recess stenosis with mild impingement of the transiting S1 nerve roots with disc extending to the neuroforamina is a mild bilateral stenosis without evidence of neural impingement. There is mild to advanced facet arthropathy with mild to moderate synovitis. IMPRESSION: No evidence of acute lumbar spine pathology. No evidence of acute fracture, infection, tumor or arachnoiditis. Severe subarticular recess stenosis at L4-5 and moderate subarticular recess stenosis L5-S1 with impingement of the transiting L5 and S1 nerve roots respectively. There is a trickle spinal canal stenosis at L4-5. There are moderately severe bilateral L4-5 neuroforaminal stenosis with impingement of the L4 nerve root ganglia. Mild to advanced facet arthropathy with mild to moderate synovitis. Electronically signed by: Angela Wallace MD 07/27/24 00:27 AM
[2024-07-27] MEDS ORDERED: KETOROLAC TROMETHAMINE 15 MG/ML VIAL IV PRN (08:10)
[2024-07-27 08:31] LABS: BUN Creatinine Ratio 21.6 (10-20); Calcium 8.9 mg/dl (8.6-10.3); Creatinine Clr Calc Pharmacy 41.9 ml/min; Potassium 3.7 mmol/L (3.5-5.1)
[2024-07-27 09:12] LABS: Hematocrit (blood only) 31.2 % (37.0-47.0); Hemoglobin 10.8 g/dl (12.0-16.0); Mean Corpuscular Hemoglobin 30.8 pg (25.0-34.0); Mean Corpuscular Hgb Conc 34.6 g/dL (32.0-36.0); Mean Corpuscular Volume 88.9 fL (80.0-100.0); Mean Platelet Volume 9.6 fL (9.4-12.4); Platelet Count 188 K/uL (130-400); RDW Coefficient of Variation 12.4 % (11.5-14.5); RDW Standard Deviation 40.4 fL (36.4-46.3); Red Blood Count 3.51 M/uL (4.20-5.40); White Blood Count 6.23 K/ul (4.8-10.8)
--- NOTE | 2024-07-27 12:31 | Hospitalist Progress Note ---
Date of Service July 27, 2024 Assessment & Plan (1) Bacteremia: Plan: Blood culture growing Actinomyces Odontoliticus source is uncertain facial CT did not show any acute pathology CT abd showed questionable gluteal lucency CT chest showed a lucency on L1, MRI lumbar did not suggest any infection Repeat culture pending Continue empiric Unasyn Appreciate ID recs (2) Diarrhea: Plan: *Diverticulosis of colon This is an 84-year-old female with past medical history of hypertension, atorvastatin, B12 deficiency, neuropathy, type 2 diabetes who presented to the emergency department on 07/22/2024 with a chief complaint of progressive weakness. Stool Biofire and C diff negative. Diarrhea has resolved. CTAP diverticlosis noted on imaging. Procal negative (3) Osteoarthritis: Plan: Patient complains of knee pains on ambulation X ray on 07/02 showed evidence of osteoarthritis will add pain control PT/OT (4) Hypokalemia: Plan: Replaced (5) Hypomagnesemia: Plan: Replaced (6) Diabetes: Plan: last hgb a1c 07/13 6.6% on insulin SS On gabapentin for neuropathy, continue Plan Chronic conditions: HTN: continue amlodipine-benazepril HLD: statin GERD: pepcid Mental health: fluoxetine Diet: carb consistent Code status: DNR/DNI DVT prophylaxis: Lovenox Disposition: awaiting eval by PT/OT, hopefully d/c back to her H in the next 24 hrs, awaitng final abx recs from ID Admission and Anticipated Discharge Date Admission Date: July 22, 2024 Subjective patient seen and examined today, seems to be in good spirits Review of Systems Review of Systems: All systems reviewed are negative, apart from the ones contained in the history. Physical Exam Physical Exam: The patient is awake, alert and oriented 3, well developed and well nourished, normocephalic and atraumatic, lying in bed and in no acute distress. HEENT--PERRL, EOMI, mucous membranes and oropharynx mildly dry Neck--supple. No JVD. No bruits. Thyroid normal, trachea midline, no adenopathy. Heart--normal S1 and S2. No murmurs, rubs or gallops. Lungs--clear bilaterally, no respiratory distress, no accessory muscle use. Abdomen--normal bowel sounds and soft. Extremities--no cyanosis or clubbing. No edema. Dermatologic--normal skin turgor, normal color, no abnormal lymph nodes, no rash. Neurologic--cranial nerves II through XII grossly intact. Rheumatologic--normal range of motion. Psychiatric--normal affect. Results & Data Results & Data Vital Signs (Past 12 Hours) Vital Signs Temp Pulse Resp BP Pulse Ox O2 Del Method 07/27/24 07:04 97.7 F 67 16 116/70 99 Room Air PG Care Time/CCT Total # of Minutes Spent Total Time Spent with Patient: Total time spent is greater than 50% in coordination of care (as documented) at patient's floor/unit and/or counseling patient: Coding Level of Care Code 87952 SUB INP/OBS CARE 2/35MIN Diagnoses Bacteremia R78.81 Diarrhea R19.7 Osteoarthritis M19.90 Hypokalemia E87.6 Hypomagnesemia E83.42 Diabetes E11.9 Diabetes mellitus type: type 2 Time Spent (min) 35 (6) Diabetes Diabetes mellitus type: type 2
--- NOTE | 2024-07-27 12:51 | Infectious Disease Progress Nt ---
Date of Service July 27, 2024 Assessment & Plan (1) Actinomyces infection: (2) Bacteremia: (3) Osteoarthritis: (4) Diabetes: Plan 84yo F with h/o T2DM, neuropathy, B12 deficiency, HTN who presented on 07/22 from [facility] with progressive weakness. She was seen in the ED on 07/18 with dysuria and discharged on abx, but never filled it since it was sent to the wrong pharmacy. She has not had any urinary symptoms for the past week, no dysuria, urinary frequency or urgency. She reported having ongoing diarrhea x 1 year with 0-3 episodes/day. Here, she has been afebrile, vss. Initial labs with WBC 5.91, Cr 0.92, AST/ALT wnl. CRP 0.52. PCT < 0.02. UA negative. MRSA screen neg. RPP neg. GIPP and C diff neg. CXR neg. CTH neg. CTAP w/o IV with subcu collection and edema in right gluteal fat, moderate amounts of formed stool and accentuated diverticulosis, no inflammatory process. Left hip XR neg for fracture. BCX returned with Actinomyces odontolyticus. She was started on zosyn. ID consulted 07/25. CT face negative. TTE negative. CT chest with subtle lucency in the left aspect of the L1 vertebra without associated periosteal reaction or destructive appearance; this could reflect the consequence of previous trauma given the chronically compressed appearance of the vertebra; small focus of infection is not excluded. She has a bruise on right buttock from fall at home over the weekend (accounting fo the findings on CTAP). MRI L spine did not show e/o acute pathology, noted stenosis. Repeat BCx are no growth (were drawn before initiation of abx). Has been on zosyn 07/24->unasyn 07/25-now. Workup for source is all negative. As no focal source is identified, the treatment of this is unclear. Most cases of isolated Actinomyces bacteremia without other sites of infection, likely require no treatment but do warrant close follow up. Note repeat BCx were done before she started abx, and they are negative. Im going to stop antibiotics and would ensure she has follow up with PCP and repeat BCx in 1 week. # BCx with Actinomyces # Diarrhea improved # h/o T2DM - Faviola stopped unasyn - repeat BCX in 1 week - close f/u with PCP ID will discontinue active follow up at this time. Please do not hesitate to reconsult the Infectious Diseases service as needed. Funmi Mtz MD [facility], Division of Infectious Diseases IDConnect: [phone] Admission and Anticipated Discharge Date Admission Date: July 22, 2024 Subjective This patient recommendation is based on a telemedicine consult request which was completed asynchronously through chart review and information provided by the primary physician. The patient was not seen or examined today. The evaluation is consultative in nature and all patient care and treatment decisions can either be accepted or rejected by the patient's primary hospital-based treating physician using their own independent medical judgment for their patient. Time Spent Reviewing Chart: 31+ minutes Results & Data Vital Signs (Past 12 Hours) Vital Signs Temp Pulse Resp BP Pulse Ox O2 Del Method 07/27/24 08:00 Room Air 07/27/24 07:04 36.5 C 67 16 116/70 99 Room Air Laboratory Results Labs reviewed. Diagnostic Findings Imaging reviewed. (4) Diabetes Diabetes mellitus type: type 2
[2024-07-28] MEDS ORDERED: traMADol HCL 50 MG TABLET PO PRN (12:29)
--- NOTE | 2024-07-28 12:36 | Hospitalist Progress Note ---
Date of Service July 28, 2024 Assessment & Plan (1) Bacteremia: Plan: Blood culture growing Actinomyces Odontoliticus source is uncertain facial CT did not show any acute pathology CT abd showed questionable gluteal lucency CT chest showed a lucency on L1, MRI lumbar did not suggest any infection Repeat culture negative completed Unasyn, which has now been discontinued Appreciate ID recs (2) Diarrhea: Plan: *Diverticulosis of colon This is an 84-year-old female with past medical history of hypertension, atorvastatin, B12 deficiency, neuropathy, type 2 diabetes who presented to the emergency department on 07/22/2024 with a chief complaint of progressive weakness. Stool Biofire and C diff negative. Diarrhea has resolved. CTAP diverticlosis noted on imaging. Procal negative (3) Osteoarthritis: Plan: Patient complains of knee pains on ambulation X ray on 07/02 showed evidence of osteoarthritis will add pain control PT/OT (4) Hypokalemia: Plan: Replaced (5) Hypomagnesemia: Plan: Replaced (6) Diabetes: Plan: last hgb a1c 07/13 6.6% on insulin SS On gabapentin for neuropathy, continue Plan Chronic conditions: HTN: continue amlodipine-benazepril HLD: statin GERD: pepcid Mental health: fluoxetine Diet: carb consistent Code status: DNR/DNI DVT prophylaxis: Lovenox Disposition: discharge to SNF when accepted Admission and Anticipated Discharge Date Admission Date: July 22, 2024 Subjective patient seen and examined today, seems to be in good spirits Review of Systems Review of Systems: All systems reviewed are negative, apart from the ones contained in the history. Physical Exam Physical Exam: The patient is awake, alert and oriented 3, well developed and well nourished, normocephalic and atraumatic, lying in bed and in no acute distress. HEENT--PERRL, EOMI, mucous membranes and oropharynx mildly dry Neck--supple. No JVD. No bruits. Thyroid normal, trachea midline, no adenopathy. Heart--normal S1 and S2. No murmurs, rubs or gallops. Lungs--clear bilaterally, no respiratory distress, no accessory muscle use. Abdomen--normal bowel sounds and soft. Extremities--no cyanosis or clubbing. No edema. Dermatologic--normal skin turgor, normal color, no abnormal lymph nodes, no rash. Neurologic--cranial nerves II through XII grossly intact. Rheumatologic--normal range of motion. Psychiatric--normal affect. Results & Data Results & Data Vital Signs (Past 12 Hours) Vital Signs Temp Pulse Pulse Resp BP Pulse Ox O2 Del Method 07/28/24 12:12 98.1 F 68 16 114/58 L 99 Room Air 07/28/24 07:58 68 124/64 07/28/24 07:20 Room Air 07/28/24 07:20 97.5 F L 72 16 125/64 98 Room Air 07/28/24 07:00 97.5 F L 65 16 129/72 98 Room Air PG Care Time/CCT Total # of Minutes Spent Total Time Spent with Patient: Total time spent is greater than 50% in coordination of care (as documented) at patient's floor/unit and/or counseling patient: Coding Level of Care Code 32134 SUB INP/OBS CARE 2/35MIN Diagnoses Bacteremia R78.81 Diarrhea R19.7 Osteoarthritis M19.90 Hypokalemia E87.6 Hypomagnesemia E83.42 Diabetes E11.9 Diabetes mellitus type: type 2 Time Spent (min) 35 (6) Diabetes Diabetes mellitus type: type 2
--- NOTE | 2024-07-29 10:16 | Hospitalist Progress Note ---
Date of Service July 29, 2024 Assessment & Plan (1) Bacteremia: Plan: Blood culture growing Actinomyces Odontoliticus source is uncertain facial CT did not show any acute pathology CT abd showed questionable gluteal lucency CT chest showed a lucency on L1, MRI lumbar did not suggest any infection Repeat culture negative completed Unasyn, which has now been discontinued Appreciate ID recs (2) Diarrhea: Plan: *Diverticulosis of colon This is an 84-year-old female with past medical history of hypertension, atorvastatin, B12 deficiency, neuropathy, type 2 diabetes who presented to the emergency department on 07/22/2024 with a chief complaint of progressive weakness. Stool Biofire and C diff negative. Diarrhea has resolved. CTAP diverticlosis noted on imaging. Procal negative (3) Osteoarthritis: Plan: Patient complains of knee pains on ambulation X ray on 07/02 showed evidence of osteoarthritis will add pain control PT/OT (4) Hypokalemia: Plan: Replaced (5) Hypomagnesemia: Plan: Replaced (6) Diabetes: Plan: last hgb a1c 07/13 6.6% on insulin SS On gabapentin for neuropathy, continue Plan Chronic conditions: HTN: continue amlodipine-benazepril HLD: statin GERD: pepcid Mental health: fluoxetine Diet: carb consistent Code status: DNR/DNI DVT prophylaxis: Lovenox Disposition: discharge to SNF when accepted, hopefully tomorrow Admission and Anticipated Discharge Date Admission Date: July 22, 2024 Subjective patient seen and examined today, seems to be in good spirits, sitting up in the chair Review of Systems Review of Systems: All systems reviewed are negative, apart from the ones contained in the history. Physical Exam Physical Exam: The patient is awake, alert and oriented 3, well developed and well nourished, normocephalic and atraumatic, lying in bed and in no acute distress. HEENT--PERRL, EOMI, mucous membranes and oropharynx mildly dry Neck--supple. No JVD. No bruits. Thyroid normal, trachea midline, no adenopathy. Heart--normal S1 and S2. No murmurs, rubs or gallops. Lungs--clear bilaterally, no respiratory distress, no accessory muscle use. Abdomen--normal bowel sounds and soft. Extremities--no cyanosis or clubbing. No edema. Dermatologic--normal skin turgor, normal color, no abnormal lymph nodes, no rash. Neurologic--cranial nerves II through XII grossly intact. Rheumatologic--normal range of motion. Psychiatric--normal affect. Results & Data Results & Data Vital Signs (Past 12 Hours) Vital Signs Temp Pulse Resp BP Pulse Ox O2 Del Method 07/29/24 07:05 97.5 F L 64 16 134/72 98 Room Air PG Care Time/CCT Total # of Minutes Spent Total Time Spent with Patient: Total time spent is greater than 50% in coordination of care (as documented) at patient's floor/unit and/or counseling patient: Coding Level of Care Code 13203 SUB INP/OBS CARE 2/35MIN Diagnoses Bacteremia R78.81 Diarrhea R19.7 Osteoarthritis M19.90 Hypokalemia E87.6 Hypomagnesemia E83.42 Diabetes E11.9 Diabetes mellitus type: type 2 Time Spent (min) 35 (6) Diabetes Diabetes mellitus type: type 2
[2024-07-30 07:42] LABS: BUN Creatinine Ratio 24.4 (10-20); Creatinine Clr Calc Pharmacy 45.1 ml/min; Potassium 3.6 mmol/L (3.5-5.1)
--- NOTE | 2024-07-30 11:50 | Discharge Summary ---
Date of Service July 30, 2024 Admission HPI Per Admitting Provider This is an 84-year-old female with past medical history of hypertension, atorvastatin, B12 deficiency, neuropathy, type 2 diabetes who presented to the emergency department on 07/22/2024 with a chief complaint of progressive weakness. The patient was seen and examined at bedside with her daughter present. Patient was recently in our emergency department on 07/18/2024. At that time she had been seen for a fall and also was experiencing some dysuria. She was discharged home with an antibiotic however that was unfortunately sent to the wrong pharmacy and she had never taken it. Patient states that she has not had any urinary symptoms in about a week or so now. She denied any dysuria, frequency, urgency within the last 24 to 48 hours. Patient states that she has just felt weak and she does not feel that she is getting any stronger. She admits that she has been having ongoing diarrhea for approximately a year now. She states that she can move her bowels anywhere from 0-3 times daily. She is unsure if she has been around any sick contacts recently as she lives in an assisted living facility. She denies any changes in her medications. She denies any chest pain, shortness of breath, lower extremity edema. She denies any abdominal pain. She does admit to feeling nauseous but denies any actual vomiting. She reports her appetite has been decreased as well. While in the emergency department she did undergo labs which included a CBC without leukocytosis. Mild anemia at 11.6. Her potassium was low at 3.1 and her magnesium was low at 1.2. These were repleted with 40 mEq of potassium in 2 g IV magnesium. Her procalcitonin was negative and her urinalysis was negative as well. Blood cultures were collected and are pending. Head CT and chest x- ray were both negative. Admission Exam (Per Admitting) Constitutional The patient is awake, alert and oriented 3, well developed and well nourished, normocephalic and atraumatic, lying in bed and in no acute distress. HEENT--PERRL, EOMI, mucous membranes and oropharynx mildly dry Neck--supple. No JVD. No bruits. Thyroid normal, trachea midline, no adenopathy. Heart--normal S1 and S2. No murmurs, rubs or gallops. Lungs--clear bilaterally, no respiratory distress, no accessory muscle use. Abdomen--normal bowel sounds and soft. Extremities--no cyanosis or clubbing. No edema. Dermatologic--normal skin turgor, normal color, no abnormal lymph nodes, no rash. Neurologic--cranial nerves II through XII grossly intact. Rheumatologic--normal range of motion. Psychiatric--normal affect. Discharge Data Consultations 07/22/24 17:37 ED Decision to Admit Stat 07/25/24 10:53 Consult Infectious Diseases Routine Hospital Course (1) Bacteremia: Blood culture growing Actinomyces Odontoliticus source is uncertain facial CT did not show any acute pathology CT abd showed questionable gluteal lucency CT chest showed a lucency on L1, MRI lumbar did not suggest any infection Repeat culture negative completed Unasyn, which has now been discontinued Appreciate ID recs (2) Diarrhea: *Diverticulosis of colon This is an 84-year-old female with past medical history of hypertension, at orvastatin, B12 deficiency, neuropathy, type 2 diabetes who presented to the emergency department on 07/22/2024 with a chief complaint of progressive weakness. Stool Biofire and C diff negative. Diarrhea has resolved. CTAP diverticlosis noted on imaging. Procal negative (3) Osteoarthritis: Patient complains of knee pains on ambulation X ray on 07/02 showed evidence of osteoarthritis will add pain control PT/OT (4) Hypokalemia: Replaced (5) Hypomagnesemia: Replaced (6) Diabetes: last hgb a1c 07/13 6.6% on insulin SS On gabapentin for neuropathy, continue Plan Chronic conditions: HTN: continue amlodipine-benazepril HLD: statin GERD: pepcid Mental health: fluoxetine Diet: carb consistent Code status: DNR/DNI DVT prophylaxis: Lovenox Disposition: discharge to SNF when accepted, hopefully tomorrow Coding Level of Care Code 49677 INP/OBS DISCH >30 MIN Diagnoses Bacteremia R78.81 Diarrhea R19.7 Osteoarthritis M19.90 Hypokalemia E87.6 Hypomagnesemia E83.42 Diabetes E11.9 Diabetes mellitus type: type 2 Time Spent (min) 35
[2024-07-30 13:15] VITALS: BP 122/79; RESP 16; TEMP 98.1; O2SAT 97
[2024-07-30 13:49] VITALS: PULSE 70
== END 2024-07-30 16:30 | DRG 392 ==
LOC: SUATTDRO → ED 15:52 → 3N 18:11 → SUATTDRO 18:11 → 3N 20:30